=== PATIENT | female | born 1935 | race Caucasian/White ===

== ENCOUNTER 2023-01-16 12:21 | Inpatient (IN) | payer MEDICARE, MEDICAID, SELFPAY ==
[2023-01-16] VITALS (9 sets, daily range): BP systolic 91–122; BP diastolic 45–62; PULSE 70–98; RESP 12–32; TEMP 36.4–37.1; O2SAT 64–100; BMI 40.7
--- NOTE | ~2023-01-16 | XR_ITS ---
XR chest 1V portable DATE: 01/22/2023 11:21 INDICATION: Cough, shortness of breath TECHNIQUE: Portable AP chest on 01/22/2023 at 1105 hours COMPARISON: 01/19/2023 portable AP chest at 0526 hours FINDINGS: Cardiomegaly. Aortic arch and descending thoracic aortic calcification. Triple lead left-sided pacemaker device with leads overlying right atrium, right ventricle and cmclendon ry sinus. There is mild pulmonary vascular congestion and there are mild bilateral perihilar and lower lung inf iltrates and/atelectasis. The infiltrates may be due to pulmonary edema. Pneumonia or aspiration or n ot excluded. IMPRESSION: No significant change of cardiomegaly, congestive changes, bilateral central and lower miguel ng infiltrates since 01/19/2023 Reviewed, dictated and finalized at location A. IMPRESSION: No significant change of cardiomegaly, congestive changes, bilatera l central and lower lung infiltrates since 01/19/2023
--- NOTE | ~2023-01-16 | XR_ITS ---
XR chest 2V 01/16/2023 13:26 Indication: Low oxygen saturations. Procedure: AP view of the chest Comparison: Comparison to multiple prior studies sequentially, with oldest reviewed study dated 05/26. Findings: Cardiomegaly. Mild interstitial edema. Pacemaker leads are stable. No significant effusion. No pneumothorax. Impression: 1: Cardiomegaly with mild interstitial edema. Reviewed, dictated and finalized at location A. Impression: 1: Cardiomegaly with mild interstitial edema.
--- NOTE | ~2023-01-16 | US_ITS ---
Duplex Sonography of the bilateral lower extremities: Indication: Swelling Sagittal and transverse B-mode images as well as color-flow imaging were performed on the right and l eft femoral and popliteal veins. B-mode examination was done without and with compression in the tra nsverse plane. There is good visualization of the bilateral common femoral, proximal profunda femora l, superficial femoral, greater saphenous, and popliteal veins. Normal flow was seen on color-flow im aging. Normal compressibility was demonstrated. Visualized calf veins are also patent. Impression: No evidence of deep vein thrombosis involving either lower extremity. Reviewed, dictated and finalized at location M. Impression: No evidence of deep vein thrombosis involving either lower extremit y.
--- NOTE | ~2023-01-16 | XR_ITS ---
Portable chest x-ray Comparison: 01/16/2023 Clinical History: Hypoxia Findings: There is central congestive change and mild central pulmonary edema. Cardiomediastinal si lhouette is stable, with pacemaker device. Bones and soft tissues are unremarkable. Impression: Mild central pulmonary edema. Stable cardiomegaly with pacemaker device. Reviewed, dictated and finalized at location . Impression: Mild central pulmonary edema. Stable cardiomegaly with pacemaker device.
--- NOTE | 2023-01-16 12:40 | ECG_ITS ---
Measurements Intervals [place] Rate: 70 P: 240 NH: 140 QRS: 184 QRSD: 163 T: 28 QT: 499 QTc: 539 Interpretive Statements ELECTRONIC ATRIAL PACEMAKER ELECTRONIC VENTRICULAR PACEMAKER NO FURTHER INTERPRETATION IS POSSIBLE ATYPICAL ECG NO PREVIOUS ECG AVAILABLE FOR COMPARISON Electronically Signed On 01-16-2023 13:28:31 CDT by Aime Colon D.O.
[2023-01-16 12:54] LABS: Basophils Percent Auto 0.6 % (0.2-1.2); Eosinophils Absolute Auto 0.1 K/mm3 (0-0.3); Eosinophils Percent Auto 1.7 % (0-4.4); Hematocrit 32.5 % (37.0-47.0); Hemoglobin 9.7 g/dL (12.0-15.0); Immature Granulocyte Absolute 0.03 K/mm3 (0.00-0.031); Immature Granulocyte Percent A 0.5 % (0-0.5); Immature Platelet Fraction Pct 13.3 % (0.9-11.2); Lymphocytes Absolute Auto 1.31 K/mm3 (0.9-3.2); Lymphocytes Percent Auto 20.2 % (18.3-44.2); Mean Corpuscular HGB Conc 29.8 g/dl (32-36); Mean Corpuscular Hemoglobin 28.5 pg (26-34); Mean Corpuscular Volume 95.6 fl (80-100); Monocytes Absolute Auto 0.6 K/mm3 (0.1-0.6); Monocytes Percent Auto 9.2 % (2.6-8.5); Neutrophils Absolute Auto 4.4 K/mm3 (1.3-6.7); Neutrophils Percent Auto 67.8 % (45.5-73.1); Platelet Count Result 71 k/mm3 (150-375); Red Cell Distribution Width 15.5 % (11.5-14.5); White Blood Count 6.5 K/mm3 (4.5-10.0)
[2023-01-16 13:01] LABS: Alanine Aminotransferase 9 U/L (6-35); Albumin Level 3.6 g/dL (3.5-5.1); Alkaline Phosphatase 51 U/L (38-126); Anion Gap 5 mmol/L (8-16); Aspartate Amino Transferase 26 U/L (14-36); Bilirubin,Total 0.6 mg/dL (0.2-1.3); Blood Urea Nitrogen 34 mg/dL (7-17); Calcium 8.4 mg/dL (8.4-10.2); Carbon Dioxide 33 mmol/L (22-30); Chloride 102 mmol/L (98-107); Estimated Glomerular Filt Rate 35; Glucose 103 mg/dL (65-110); Lipase 19 U/L (23-300); Potassium 4.9 mmol/L (3.4-5.0); Sodium 140 mmol/L (137-145)
[2023-01-16 13:04] LABS: Platelet Estimate Decreased (Adequate)
[2023-01-16 13:05] LABS: Hypochromasia 1+ (NORMAL); Poikilocytosis 1+ (NORMAL); Schistocytes None Seen (NORMAL)
--- NOTE | 2023-01-16 13:39 | ED.NAVMDI ---
HPI - Nausea/Vomiting/Diarrhea General Chief complaint: Nausea/Vomiting/Diarrhea Stated complaint: N/V Time Seen by Provider: 01/16/23 13:30 History of Present Illness HPI Narrative: 87-year-old female presents to the emergency room today from a long-term care facility for cough, chest congestion and shortness of breath for the past 3 days. She had 1 episode of nausea and vomiting this morning after breakfast but says this is resolved at this time. She is more short of breath than normal. Her O2 sats were low when she initially arrived to our ER and she was placed on 2 L nasal cannula. At the time of my exam the patient was satting around 98 to 100% with the 2 L by nasal cannula. She has not had any fever or chills. She denies having any chest pain or palpitations. No dizziness or lightheadedness. She does have a cardiac history and has a pacemaker. Related Data Allergies Allergy/AdvReac Type Severity Reaction Status Date / Time meclizine Allergy Mild [place] Verified 05/05/17 08:23 Penicillins Allergy Mild SENT TO Verified 05/05/17 08:23 [facility] povidone-iodine Allergy Unknown SKIN Verified 05/05/17 08:23 BREAKDOWN soap Allergy Unknown SKIN Verified 05/05/17 08:23 BREAKDOWN tetanus and diphtheria Allergy Unknown Unknown Verified 01/16/23 13:53 toxoids Review of Systems Review of Systems: CONSTITUTIONAL: Denies fever, chills, or sweats. EYES: Denies visual changes, redness, or discharge. ENT: Denies rhinorrhea, congestion, sore throat, or otalgia. CARDIOVASCULAR: chronic edema to lower extremities, no worse than normal per patient RESPIRATORY: as per HPI GASTROINTESTINAL: Denies abdominal pain, nausea, vomiting, or diarrhea. GENITOURINARY: Denies dysuria or hematuria. SKIN: Denies rash or itching. MUSCULOSKELETAL: Denies back pain, joint pain, or myalgia. NEUROLOGIC: Denies headache, numbness, dizziness, or weakness. PSYCHIATRIC: Denies anxiety or depression. Exam Narrative: GENERAL: no acute distress. HEAD: Normocephalic, atraumatic. EYES: PERRL NECK: Supple. No adenopathy or masses. No carotid bruits or JVD CHEST: course crackles noted to bases bilaterally, mild increased work of breathing HEART: Regular rate and rhythm. No murmur heard. Normal peripheral pulses. ABDOMEN: Soft, nontender, nondistended, normal active bowel sounds. EXTREMITIES: 2 + edema bilateral lower extremities SKIN: Warm, dry, no rash. NEURO: No focal deficits. Alert and oriented x3. PSYCH: Normal mood and affect. Course Vital Signs Vital signs: Vital Signs Temperature 37.1 C 01/16/23 12:22 Pulse Rate 70 01/16/23 12:22 Respiratory Rate 32 H 01/16/23 12:22 Blood Pressure 91/50 L 01/16/23 12:22 Pulse Oximetry 64 L 01/16/23 12:22 Oxygen Delivery Room Air 01/16/23 12:22 Temperature 37.1 C 01/16/23 12:22 Pulse Rate 71 01/16/23 14:03 Respiratory Rate 17 01/16/23 14:03 Blood Pressure 102/45 L 01/16/23 12:56 Pulse Oximetry 97 01/16/23 13:43 Oxygen Delivery Nasal Cannula 01/16/23 13:43 Oxygen Flow Rate 2 01/16/23 13:43 MDM - Nausea/Vomiting/Diarrhea MDM Narrative Medical decision making narrative: Discussed with Shazia CHIEF PHYSICAL THERAPIST, accepting patient for admission for acute CHF exacerbation. Lab Data Attestation: I reviewed the patient's lab results. 01/16/23 12:45 01/16/23 12:45 Labs: Lab Results 01/16/23 01/16/23 01/16/23 Range/Units 12:44 12:45 13:50 WBC 6.5 (4.5-10.0) K/mm3 RBC 3.40 L (4.2-5.4) M/mm3 Hgb 9.7 L (12.0-15.0) g/dL Hct 32.5 L (37.0-47.0) % MCV 95.6 (80-100) fl MCH 28.5 (26-34) pg MCHC 29.8 L (32-36) g/dl RDW 15.5 H (11.5-14.5) % Plt Count 71 L (150-375) k/mm3 MPV 12.0 H (7.4-10.4) fl Immature Gran % (Auto) 0.5 (0-0.5) % Neut % (Auto) 67.8 (45.5-73.1) % Lymph % (Auto) 20.2 (18.3-44.2) % Clinch % (Auto) 9.2 H (2.6-8.5) % Eos % (Auto) 1.7
[2023-01-16] MEDS: ALBUTEROL SULFATE NEB 2.5 MG/3 ML INH INHALATION (13:53)
[2023-01-16] MEDS: IPRATROPIUM BR 0.02% INH SOLN 0.5 MG/2.5 ML VIAL INHALATION (13:53)
[2023-01-16 14:02] LABS: Appearance Urine Clear (Clear); Bilirubin Urine Negative (Negative); Blood Urine Negative (Negative); Color Urine Yellow (Yellow); Glucose Urine UA Negative (Negative); Ketones Urine Negative (Negative); Leukocyte Esterase Ur Negative LEU/UL (Negative); Nitrate Urine Negative (Negative); Protein Urine Negative (Negative); Specific Grav Ur 1.011 (1.001-1.035)
[2023-01-16 14:03] LABS: Add Urine Microscopic? NO
[2023-01-16 14:12] LABS: NT Pro B Type Natriuretic Pept 3890 pg/mL (19.9-100); Troponin I 0.014 ng/mL (0.000-0.034)
[2023-01-16] MEDS: FUROSEMIDE INJ 40 MG/4 ML VIAL IV PUSH (14:24)
--- NOTE | 2023-01-16 16:04 | PM.IMHP ---
H&P: HPI History of Present Illness Date/Time: 01/16/23 15:45 Chief Complaint: Cough, nausea, vomiting. Narrative: This is a pleasant 87-year-old female with history of diastolic and systolic congestive heart failure, hypertension, chronic kidney disease, anemia, Parkinson, and other comorbidities who presented to the emergency department via EMS from [facility] for evaluation of cough, nausea, and vomiting. The patient provides the following history. She developed a nagging but non-productive cough about 3 days ago and she was given some sort of medication the last couple of days which has not helped her. This morning she was feeling nauseated and she reports having 1 episode of emesis, possibly post-tussive, and she was brought in for evaluation. She denies fever, chills, sweats, headache, sinus congestion, sore throat, productive cough, chest pain, pleuritic pains, hematemesis, melena, hematochezia, and dysuria. She also denies orthopnea, paroxysmal nocturnal dyspnea, and worsening of her chronic edema. She was afebrile on arrival with stable blood pressures. Preliminary workup in the ED seems to be consistent with CHF exacerbation with mild interstitial edema noted on chest x-ray and an elevated proBNP. She received 40 mg IV furosemide and she is being admitted in this setting for further diuresis. At the time my evaluation she has no current complaints. Her nausea has resolved and she reports being hungry at this time. Review of Systems Review of Systems: Twelve systems were reviewed and are negative except for as per HPI. 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 Parkinson disease Peptic ulcer Type 2 diabetes mellitus Diet controlled. Surgical History Surgical History History of appendectomy History of benign breast biopsy History of bilateral cataract extraction History of carpal tunnel release of both wrists History of hemorrhoidectomy History of permanent cardiac pacemaker placement Family History Family History Daughter Cancer Sibling Diabetes mellitus Father Heart disease Social History Social History (Updated 01/17/23 @ 14:56 by Belen Huerta PA-C) Social History: Surrogate medical decision maker: Jori DunneJr (son). Code status: Full code. Smoking packs per day: 0.05 Smoking cigarettes per day: 1.0 Years smoked: 20 Smoking pack-years: 1.00 Smoking status: Former smoker Tobacco type: cigarettes Alcohol intake: former Drinks per week: 6 Substance use: never Lack of Transportation: No Lack of Food: Never True Current Housing: I Have Housing Concerned About Future Housing: No Difficulty Paying Gas/Electric Bills: No Difficulty Paying for Meds: No Currently Unemployed: No Education: Grade School Difficulty w/ Childcare or Family Care: No Living arrangements: shelter Additional living arrangements comments: [facility] in [place]. Spiritual care concerns: Yes Meds Home Medications and Allergies Home Medications Medication Instructions Recorded Confirmed Type albuterol sulfate 2.5 mg/3 mL 2.5 mg inhalation Q6H 01/16/23 01/16/23 History (0.083 %) solution for nebulization bisacodyl 5 mg tablet,delayed 5 mg PO DAILY 01/16/23 01/16/23 History release (Dulcolax (bisacodyl)) bupropion HCl 100 mg tablet 100 mg PO DAILY 01/16/23 01/16/23 History carbidopa 10 mg-levodopa 100 mg 1 tablet PO Q8H 01/16/23 01/16/23 History tablet carvedilol 3.125 mg tablet 3.125 mg PO Q12H 01/16/23 01/16/23 History cyanocobalamin (vit
--- NOTE | 2023-01-16 16:30 | ADMGEN ---
This patient, Julia Dunne, was admitted to [facility] S[facility] Room 331-02. Patient/family oriented to hospital policies and general routines including ID bracelet, bed and alarms, visiting hours, pain management, procedures, bathroom and other care routines, personal items, smoking policy, room service/diet, and visiting hours. Information on how to activate the Rapid Response Team has been discussed. Patient/Family are encouraged to report perceived risks to care and to ask questions if they do not understand what they are told or what they should do.
[2023-01-16] MEDS: carvediloL 3.125 MG TABLET PO (23:59)
[2023-01-16] MEDS: CARBIDOPA/LEVODOPA 10/100 MG TABLET 1 TABLET PO (23:59)
[2023-01-16] MEDS: MELATONIN 5 MG TABLET 10 MG PO (23:59)
[2023-01-16] MEDS: SIMVASTATIN 20 MG TABLET PO (23:59)
[2023-01-17] VITALS (25 sets, daily range): BP systolic 102–139; BP diastolic 50–81; PULSE 58–88; RESP 14–20; TEMP 36.1–36.6; O2SAT 80–99
--- NOTE | 2023-01-17 | ECHO_ITS ---
Patient Info Name: Julia Dunne Age: 87 years : 1935 Gender: Female Ht: 58 in Wt: 194 lbs BSA: 1.95 m2 HR: 70 bpm BP: 108 / 68 mmHg Heart Rhythm: Sinus Rhythm Technical Quality: Good Exam Date: 01/17/2023 10:33 AM Exam Location: [facility] Patient Status: Inpatient Admit Date: 01/16/2023 Staff Ordering Physician: Belen Huerta PA-C Retail Selling Specialist: Chandrika Haines RDCS Attending Provider: Elisha Davis MD Referring Physician: Bradley DAVIS; Exam Type: CA echo doppler color flow Study Info Indications - CHF Complete two-dimensional, color flow and Doppler transthoracic echocardiogram is performed. Summary 1. Complete two-dimensional, color flow and Doppler transthoracic echocardiogram is performed. 2. Left ventricular chamber dimension is normal. 3. Left ventricular systolic function is normal, estimated at 65-70%. 4. The left ventricular diastolic function is grade III diastolic dysfunction. 5. Right ventricular systolic function is normal. 6. Left atrial chamber dimension is moderately enlarged. 7. Right atrial chamber dimension is moderately enlarged. 8. There is a questionable small right atrial mass that is seen on the four chamber views. Cannot differentiate on this study between [place] valley structure vs pathological finding. Consider TOSHA or other type of cardiac imaging if clinically indicated. 9. Interatrial septum is aneurysmal. 10. There is moderate aortic valve calcification. 11. There is moderate to severe aortic valve stenosis with a peak velocity of 325 cm/s, mean gradient of 22 mmHg, and aortic valve area of 0.8 cm2. 12. There is mild mitral valve regurgitation. 13. There is mild tricuspid valve regurgitation. 14. There is small pericardial effusion. Left Ventricle Left ventricular chamber dimension is normal. Left ventricular systolic function is normal, estimated at 65-70%. There is no increased left ventricular wall thickness. The left ventricular diastolic function is grade III diastolic dysfunction. Right Ventricle Right ventricular chamber dimension is normal. Right ventricular systolic function is normal. Linear artifact in right ventricle suggestive of catheter(s), pacemaker lead(s), or ICD lead(s). Left Atria Left atrial chamber dimension is moderately enlarged. Right Atria Right atrial chamber dimension is moderately enlarged. Linear artifact in the right atrium suggestive of catheter(s), pacemaker lead(s), or ICD lead(s). There is a questionable small right atrial mass that is seen on the four chamber views. Cannot differentiate on this study between [place] structure vs pathological finding. Consider TOSHA or other type of cardiac imaging if clinically indicated. Atrial Septum Interatrial septum is aneurysmal. Aortic Valve The aortic valve is not well visualized. There is moderate to severe aortic valve stenosis with a peak velocity of 325 cm/s, mean gradient of 22 mmHg, and aortic valve area of 0.8 cm2. There is no aortic valve regurgitation. There is moderate aortic valve calcification. Pulmonic Valve The pulmonic valve is not well visualized. Mitral Valve The mitral valve has normal leaflets. There is mild mitral valve regurgitation. The mitral valve annulus is moderately calcified. Tricuspid Valve There is mild tricuspid valve regurgitation. Pericardium/Pleural There is small pericardial effusion. Inferior Vena Cava Normal inferior vena cava with >50% collapse upon inspiration consistent with normal right atrial pressure, 3 mmHg. Aorta The aortic root size at the sinus of Valsalva is nor
[2023-01-17] MEDS: ALBUTEROL SULFATE NEB 2.5 MG/3 ML INH INHALATION ×4 (01:40→19:32)
[2023-01-17 06:07] LABS: Hematocrit 30.1 % (37.0-47.0); Hemoglobin 8.8 g/dL (12.0-15.0); Immature Platelet Fraction Pct 13.1 % (0.9-11.2); Mean Corpuscular HGB Conc 29.2 g/dl (32-36); Mean Corpuscular Hemoglobin 28.2 pg (26-34); Mean Corpuscular Volume 96.5 fl (80-100); Mean Platelet Volume 12.3 fl (7.4-10.4); Platelet Count Result 70 k/mm3 (150-375); Red Blood Count 3.12 M/mm3 (4.2-5.4); White Blood Count 4.8 K/mm3 (4.5-10.0)
[2023-01-17 06:10] LABS: Anion Gap 6 mmol/L (8-16); Blood Urea Nitrogen 38 mg/dL (7-17); Calcium 8.1 mg/dL (8.4-10.2); Carbon Dioxide 32 mmol/L (22-30); Chloride 101 mmol/L (98-107); Estimated Glomerular Filt Rate 30; Glucose 79 mg/dL (65-110); Magnesium 1.9 mg/dL (1.6-2.3); Potassium 4.4 mmol/L (3.4-5.0); Sodium 139 mmol/L (137-145)
[2023-01-17 06:48] LABS: Thyroid Stimulating Hormone Reflex 0.818 uIU/mL (0.465-4.68)
[2023-01-17] MEDS: FLUTICASONE/SALMETEROL 230-21 MCG INHALER 1 PUFF 2 PUFF INHALATION ×2 (07:04→19:37)
[2023-01-17] MEDS: carvediloL 3.125 MG TABLET PO ×2 (08:29→20:50)
[2023-01-17] MEDS: BISACODYL 5 MG TABLET EC PO (08:29)
[2023-01-17] MEDS: CARBIDOPA/LEVODOPA 10/100 MG TABLET 1 TABLET PO ×3 (08:29→17:27)
[2023-01-17] MEDS: CYANOCOBALAMIN 1,000 MCG TABLET 1000 MCG PO (08:31)
[2023-01-17] MEDS: FOLIC ACID 1 MG TABLET PO (08:31)
[2023-01-17] MEDS: buPROPion HCL 100 MG TABLET PO (08:31)
[2023-01-17] MEDS: PANTOPRAZOLE 40 MG TABLET PO (08:31)
[2023-01-17] MEDS: FUROSEMIDE INJ 40 MG/4 ML VIAL 20 MG IV PUSH ×3 (08:31→17:27)
[2023-01-17] MEDS: ESCITALOPRAM OXALATE 10 MG TABLET PO (08:31)
[2023-01-17] MEDS: FERROUS SULFATE 325 MG TABLET DR BY MOUTH (08:31)
--- NOTE | 2023-01-17 14:17 | PM.IMPN ---
Progress Note: A&P Assessment and Plan (1) Acute on chronic combined systolic and diastolic congestive heart failure: Code(s): I50.43 - Acute on chronic combined systolic (congestive) and diastolic (congestive) heart failure Status: Acute Assessment and Plan: The patient presented for evaluation of n/v and cough but also shortness of breath. BNP 3890. CXR showing CMG with mild interstitial edema. Troponin negative x 1. EKG showing paced rhythm. Tele also showing paced rhythm so okay to stop tele. She appears to have CHF exacerbation. IV Lasix started. Cr up slightly today. Still requiring O2. Echo ordered and is pending. Venous Dopplers are negative for DVT. Continue IV Lasix. Wean o2 as tolerated. Follow up on Echo results. (2) Hypoxia: Code(s): R09.02 - Hypoxemia Status: Acute Assessment and Plan: CXR as mentioned above. Suspect hypoxia related to CHF exacerbation. Wean o2 as tolerated (3) Chronic kidney disease: Code(s): N18.9 - Chronic kidney disease, unspecified Status: Acute Assessment and Plan: Unclear on her baseline Cr. Cr here was 1.4 and has climbed slightly to 1.6 with IV lasix. Follow closely. (4) Chronic anemia: Code(s): D64.9 - Anemia, unspecified Status: Acute Assessment and Plan: Hgb 9.7 on admission. Patient with anemia which may be chronic. She is on chronic iron and B12 supplement which were continued. Will follow. (5) Hypertension: Code(s): I10 - Essential (primary) hypertension Status: Acute Assessment and Plan: Patient's blood pressure was reviewed on 01/17 Blood pressure remains well controlled. Will continue to monitor (6) Parkinson disease: Code(s): G20 - Parkinson's disease Status: Acute Assessment and Plan: Stable. Continue Sinemet. PT/OT. (7) Thrombocytopenia: Code(s): D69.6 - Thrombocytopenia, unspecified Status: Acute Assessment and Plan: Plt count low at 70K and unchanged on repeat. She is on B12 orally but will check level since she may not be absorbing this. Unclear if this is acute or chronic. monitor for now. Plan DVT prophylaxis - SCD Code status - full Subjective Date/time seen: 01/17/23 14:17 Interval history: 87yo female with HTN, CKD, DM, Parkinson and CHF here for cough, nausea and vomiting. She slept well. No CP. Has SOb when she coughs at times. Not on O2 at home. no hx of OLGA. Eating okay. Exam Narrative: AF 98.0 106/52 78 18 92% Gen - NARD lying semi-recumbent in bed. Chest - bibasilar inspiratory crackles with course expiratory rhonchi CV - RRR S1/S2. Tele showing paced rhythm Abd - Soft, obese, NT Ext - mild pitting pedal edema with more chronic nonpitting edema Neuro - Alert and orientedx4. Psych - Nml mood and affect Skin - Warm and dry. chronic LE venous stasis skin changes Objective Data Vital Signs Vital Signs: Vital Signs - 24 hr 01/16/23 16:41 01/16/23 16:45 01/16/23 20:00 Temperature 97.5 F L Pulse Rate 70 70 Respiratory Rate 16 16 Blood Pressure 122/62 Pulse Oximetry 100 100 100 Oxygen Delivery Nasal Cannula Nasal Cannula Oxygen Flow Rate 2 2 Fraction of Inspired Oxygen 01/16/23 20:00 01/17/23 00:00 01/17/23 01:43 Temperature 97.9 F 97.1 F L Pulse Rate 98 70 70 Respiratory Rate 12 18 18 Blood Pressure 121/54 L 127/63 Pulse Oximetry 99 99 Oxygen Delivery Oxygen Flow Rate Fraction of Inspired Oxygen 01/17/23 01:44 01/17/23 01:46 01/16/23 20:00 Temperature Pulse Rate 70 70 70 Respiratory Rate 20 18 Blood Pressure Pulse Oximetry 98 Oxygen Delivery Nasal Cannula Oxygen Flow Rate 1 Fraction of Inspired Oxygen 28 01/17/23 00:00 01/17/23 04:00 01/17/23 04:00 Temperature 96.9 F L Pulse Rate 70 70 70 Respiratory Rate 14 Blood Pressure 108/68 Pulse Oximetry 99 Oxygen Delivery Oxygen Flow Rate Fract
--- NOTE | 2023-01-17 15:18 | PCOTNOTE ---
OT evaluation orders received. Pt currently working with PT. Will continue to follow and attempt back tomorrow.
[2023-01-17] MEDS: MELATONIN 5 MG TABLET 10 MG PO (20:50)
[2023-01-17] MEDS: SIMVASTATIN 20 MG TABLET PO (20:50)
[2023-01-18] VITALS (19 sets, daily range): BP systolic 105–123; BP diastolic 50–62; PULSE 68–78; RESP 16–20; TEMP 36.1–36.5; O2SAT 76–100
[2023-01-18] MEDS: ALBUTEROL SULFATE NEB 2.5 MG/3 ML INH INHALATION ×4 (02:45→20:35)
[2023-01-18 06:10] LABS: Basophils Percent Auto 0.7 % (0.2-1.2); Eosinophils Absolute Auto 0.3 K/mm3 (0-0.3); Eosinophils Percent Auto 6.1 % (0-4.4); Hematocrit 30.5 % (37.0-47.0); Immature Granulocyte Absolute 0.01 K/mm3 (0.00-0.031); Immature Granulocyte Percent A 0.2 % (0-0.5); Immature Platelet Fraction Pct 12.9 % (0.9-11.2); Lymphocytes Absolute Auto 1.53 K/mm3 (0.9-3.2); Lymphocytes Percent Auto 34.8 % (18.3-44.2); Mean Corpuscular HGB Conc 29.5 g/dl (32-36); Mean Corpuscular Hemoglobin 28.5 pg (26-34); Mean Corpuscular Volume 96.5 fl (80-100); Mean Platelet Volume 12.1 fl (7.4-10.4); Monocytes Absolute Auto 0.4 K/mm3 (0.1-0.6); Neutrophils Absolute Auto 2.1 K/mm3 (1.3-6.7); Neutrophils Percent Auto 48.2 % (45.5-73.1); Platelet Count Result 99 k/mm3 (150-375); Red Blood Count 3.16 M/mm3 (4.2-5.4); Red Cell Distribution Width 14.7 % (11.5-14.5); White Blood Count 4.4 K/mm3 (4.5-10.0)
[2023-01-18 06:25] LABS: Anion Gap 4 mmol/L (8-16); Blood Urea Nitrogen 37 mg/dL (7-17); Calcium 7.8 mg/dL (8.4-10.2); Carbon Dioxide 37 mmol/L (22-30); Chloride 97 mmol/L (98-107); Estimated Glomerular Filt Rate 28; Glucose 83 mg/dL (65-110); Potassium 4.1 mmol/L (3.4-5.0); Sodium 138 mmol/L (137-145)
[2023-01-18 07:03] LABS: Hypochromasia 2+ (NORMAL); Poikilocytosis 1+ (NORMAL); Schistocytes None Seen (NORMAL)
[2023-01-18 07:31] LABS: Folic Acid > 20.0 ng/mL (2.76->20); Vitamin B12 > 1000.0 pg/mL (239-931)
[2023-01-18] MEDS: FLUTICASONE/SALMETEROL 230-21 MCG INHALER 1 PUFF 2 PUFF INHALATION ×2 (07:36→20:36)
[2023-01-18] MEDS: PANTOPRAZOLE 40 MG TABLET PO (08:19)
[2023-01-18] MEDS: buPROPion HCL 100 MG TABLET PO (08:19)
[2023-01-18] MEDS: CARBIDOPA/LEVODOPA 10/100 MG TABLET 1 TABLET PO ×3 (08:19→17:31)
[2023-01-18] MEDS: FERROUS SULFATE 325 MG TABLET DR BY MOUTH (08:19)
[2023-01-18] MEDS: FOLIC ACID 1 MG TABLET PO (08:19)
[2023-01-18] MEDS: carvediloL 3.125 MG TABLET PO ×2 (08:20→21:30)
[2023-01-18] MEDS: CYANOCOBALAMIN 1,000 MCG TABLET 1000 MCG PO (08:22)
[2023-01-18] MEDS: ESCITALOPRAM OXALATE 10 MG TABLET PO (08:22)
[2023-01-18] MEDS: BISACODYL 5 MG TABLET EC PO (08:22)
[2023-01-18] MEDS: FUROSEMIDE INJ 40 MG/4 ML VIAL 20 MG IV PUSH ×2 (08:28→17:31)
--- NOTE | 2023-01-18 10:09 | PM.IMPN ---
Progress Note: A&P Assessment and Plan (1) Acute on chronic combined systolic and diastolic congestive heart failure: Code(s): I50.43 - Acute on chronic combined systolic (congestive) and diastolic (congestive) heart failure Status: Acute Assessment and Plan: The patient presented for evaluation of n/v and cough but also shortness of breath. BNP 3890. CXR showing CMG with mild interstitial edema. Troponin negative x 1. EKG showing paced rhythm. Tele also showing paced rhythm so okay to stop tele. She appears to have CHF exacerbation. IV Lasix started. Cr up slightly today. Still requiring O2. Echo ordered and is pending. Venous Dopplers are negative for DVT. Continue IV Lasix. Wean o2 as tolerated. 01/18: abnormal echo noted, possible atrial mass? cardio consult pending (2) Hypoxia: Code(s): R09.02 - Hypoxemia Status: Acute Assessment and Plan: CXR as mentioned above. Suspect hypoxia related to CHF exacerbation. Wean o2 as tolerated (3) Chronic kidney disease: Code(s): N18.9 - Chronic kidney disease, unspecified Status: Acute Assessment and Plan: Unclear on her baseline Cr. Cr here was 1.4 and has climbed slightly to 1.6 with IV lasix. Follow closely. (4) Chronic anemia: Code(s): D64.9 - Anemia, unspecified Status: Acute Assessment and Plan: Hgb 9.7 on admission. Patient with anemia which may be chronic. She is on chronic iron and B12 supplement which were continued. Will follow. (5) Hypertension: Code(s): I10 - Essential (primary) hypertension Status: Acute Assessment and Plan: Patient's blood pressure was reviewed on 01/18 Blood pressure remains well controlled. Will continue to monitor (6) Parkinson disease: Code(s): G20 - Parkinson's disease Status: Acute Assessment and Plan: Stable. Continue Sinemet. PT/OT. (7) Thrombocytopenia: Code(s): D69.6 - Thrombocytopenia, unspecified Status: Acute Assessment and Plan: Plt count low at 70K and unchanged on repeat. She is on B12 orally but will check level since she may not be absorbing this. Unclear if this is acute or chronic. monitor for now. Plan DVT prophylaxis - SCD Code status - full Subjective Date/time seen: 01/18/23 10:09 Interval history: 87yo female with HTN, CKD, DM, Parkinson and CHF here for cough, nausea and vomiting. No overnight events noted. No chest pain or shortness of breath. No nausea, vomiting or diarrhea. No fevers or chills. Review of Systems Review of Systems: 12 point review of systems was assessed and was negative except as noted in the HPI Exam Narrative: General: No acute distress, alert and oriented per baseline HEENT: Atraumatic, normocephalic, mucous membranes moist CV: Regular rate and rhythm, S1, S2 Lungs: Clear to auscultation bilaterally, scattered crackles Abdomen: Soft, nontender, nondistended Extremities: Normal to inspection, trace pitting edema Skin: No rashes noted, no lesions or wounds seen Psych: Euthymic, normal affect Objective Data Vital Signs Vital Signs: Vital Signs - 24 hr 01/17/23 12:00 01/17/23 12:31 01/17/23 13:10 Temperature 98 F Pulse Rate 70 59 L 82 Respiratory Rate 20 18 Blood Pressure 106/52 L Pulse Oximetry 92 Oxygen Delivery Oxygen Flow Rate Fraction of Inspired Oxygen 01/17/23 13:20 01/17/23 13:05 01/17/23 14:55 Temperature 98 F Pulse Rate 78 60 Respiratory Rate 18 20 Blood Pressure 110/54 L Pulse Oximetry 80 L 90 Oxygen Delivery Room Air Oxygen Flow Rate Fraction of Inspired Oxygen 01/17/23 15:09 01/17/23 16:45 01/17/23 16:00 Temperature 97.9 F Pulse Rate 70 70 Respiratory Rate 18 Blood Pressure 119/60 Pulse Oximetry 98 Oxygen Delivery Nasal Cannula Oxygen Flow Rate 2 Fraction of Inspired Oxygen 01/17/23 19:32 01/17/23 19:41 01/17/23
--- NOTE | 2023-01-18 15:00 | PM.CNCAR ---
Assessment and Plan Assessment and plan (1) Acute exacerbation of CHF (congestive heart failure): Qualifiers: Heart failure type: unspecified Qualified Code(s): I50.9 - Heart failure, unspecified Code(s): I50.9 - Heart failure, unspecified Status: Acute Assessment and Plan: Continue with IV Lasix. Please monitor strict I/Os. Will obtain repeat CXR tomorrow morning. Echocardiogram personally reviewed. LVEF is preserved. Has a questionable small right atrial mass that is highly echogenic. Does not have independent motion. Given the location, could very likely be a [place] structure. Could also be fibrinous material that is attached to her pacemaker lead. I do not think it is a vegetation. No thrombus seen in the IVC extending into the right atrium, and the echogenicity does not appear to be consistent with a thrombus either. It is only appreciated in the four chamber views, not seen on the substernal views. Blood cultures obtained on 01/16 are also no growth to date. At this time, no plans for further inpatient cardiac imaging. Will plan to have patient follow up with us as an outpatient and will plan for repeat serial outpatient echocardiogram or cardiac CT. (2) Aortic stenosis: Code(s): I35.0 - Nonrheumatic aortic (valve) stenosis Status: Acute Assessment and Plan: Moderate to severe noted on echo. Will need to obtain her prior cardiology records for comparison. Outpatient follow up. (3) Acute respiratory failure with hypoxia: Code(s): J96.01 - Acute respiratory failure with hypoxia Status: Acute Assessment and Plan: Will obtain repeat CXR tomorrow morning. Wean oxygen as tolerated. (4) Chronic kidney disease: Code(s): N18.9 - Chronic kidney disease, unspecified Status: Acute Assessment and Plan: Closely monitor renal function History of Present Illness History of Present Illness Consult date/time: 01/18/23 15:00 Requesting physician: Bekah Meehan DO Consult reason: Other (Abnormal echo) Reason For Visit: CHF Exacerbation Narrative: This is an 87-year-old female with history of congestive heart failure, s/p pacemaker, hypertension, chronic kidney disease, Parkinson's who presented from her correction for cough, nausea, and vomiting. Patient is a difficult historian and cannot provide many details. She tells me that she was feeling tired and sleepy before coming in to the hospital. She told admitting Hospitalist that she was having a non-productive cough for about 3 days prior to presentation, but she cannot provide details about that to me. ER workup showed mild interstitial edema. NT pro BNP elevated. Patient currently being treated for decompensated heart failure with IV Lasix. She is reported to have chronic lower extremity edema. We do not have any prior records in our system regarding her medical issues. Echocardiogram this admission read by us shows LVEF 65-70%, grade 3 diastolic dysfunction, moderate biatrial enlargement, questionable small right atrial mass, aneurysmal interatrial septum. moderate-severe aortic valve stenosis. She is on supplemental oxygen via nasal cannula. She is not known to be on oxygen at home. Patient denies chest pain, shortness of breath. She reports feeling tired and sleepy. 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 Parkinson disease Peptic ulcer Type 2 diabetes mellitus Diet controlled. Surgical History Surgical History History of appendectomy History of be
[2023-01-18] MEDS: SIMVASTATIN 20 MG TABLET PO (21:30)
[2023-01-18] MEDS: MELATONIN 5 MG TABLET 10 MG PO (21:30)
[2023-01-19] VITALS (19 sets, daily range): BP systolic 100–127; BP diastolic 43–59; PULSE 66–78; RESP 14–24; TEMP 36.4–37.6; O2SAT 90–96
[2023-01-19] MEDS: ALBUTEROL SULFATE NEB 2.5 MG/3 ML INH INHALATION ×4 (02:21→21:11)
[2023-01-19] MEDS: FLUTICASONE/SALMETEROL 230-21 MCG INHALER 1 PUFF 2 PUFF INHALATION ×2 (08:00→21:11)
[2023-01-19] MEDS: FUROSEMIDE INJ 40 MG/4 ML VIAL 20 MG IV PUSH ×3 (09:29→16:41)
[2023-01-19] MEDS: BISACODYL 5 MG TABLET EC PO (09:30)
[2023-01-19] MEDS: FOLIC ACID 1 MG TABLET PO (09:30)
[2023-01-19] MEDS: buPROPion HCL 100 MG TABLET PO (09:30)
[2023-01-19] MEDS: CARBIDOPA/LEVODOPA 10/100 MG TABLET 1 TABLET PO ×3 (09:30→16:41)
[2023-01-19] MEDS: PANTOPRAZOLE 40 MG TABLET PO (09:30)
[2023-01-19] MEDS: FERROUS SULFATE 325 MG TABLET DR BY MOUTH (09:31)
[2023-01-19] MEDS: CYANOCOBALAMIN 1,000 MCG TABLET 1000 MCG PO (09:31)
[2023-01-19] MEDS: ESCITALOPRAM OXALATE 10 MG TABLET PO (09:31)
[2023-01-19] MEDS: carvediloL 3.125 MG TABLET PO ×2 (09:31→20:54)
--- NOTE | 2023-01-19 09:40 | PM.PNCARD ---
Progress Note: A&P Assessment and Plan (1) Acute exacerbation of CHF (congestive heart failure): Qualifiers: Heart failure type: unspecified Qualified Code(s): I50.9 - Heart failure, unspecified Code(s): I50.9 - Heart failure, unspecified Status: Acute Assessment and Plan: Acute on chronic diastolic heart failure. Improving with IV furosemide Still has pulmonary edema on CXR Continue furosemide 20mg b.i.d, but will give one extra dose today. Monitor renal function and electrolytes closely Monitor strict I&O Daily weights LONI boo Will add Entresto to her regimen. Can also consider adding spironolactone and jardiance to her regimen if her renal function remains stable with Entresto. (2) Aortic stenosis: Code(s): I35.0 - Nonrheumatic aortic (valve) stenosis Status: Acute Assessment and Plan: Moderate to severe noted on echo. Will need to obtain her prior cardiology records for comparison. Outpatient follow up. (3) Acute respiratory failure with hypoxia: Code(s): J96.01 - Acute respiratory failure with hypoxia Status: Acute Assessment and Plan: CXR continues so show pulmonary edema. Wean oxygen as tolerated. (4) Chronic kidney disease: Code(s): N18.9 - Chronic kidney disease, unspecified Status: Acute Assessment and Plan: Closely monitor renal function Subjective Date/time seen: 01/19/23 09:40 Cardiology follow up for CHF Interval history: She's feeling better today. Feels less short of breath. Worked with physical therapy this morning and didn't have any significant problems breathing with activity. Remains quite swollen. Review of Systems Review of Systems: All systems reviewed & are unremarkable except as noted in HPI and below (HPI) Exam Const: General: comfortable and no acute distress HENMT: Mouth: Yes moist mucous membranes Eyes: General: appearance normal, both eyes and all related structures Sclera: sclerae normal Neck: Neck: supple Resp: Effort & Inspection: normal respiratory effort Auscultation: rales and diminished lung sounds Other: On supplemental oxygen via nasal cannula. Cardio: Rate: regular rate Rhythm: regular rhythm Heart sounds: Murmur heart sound present systolic Skin: General skin exam: normal color Neuro: Speech: normal speech Extrem: General: edema Psych: Mental Status: mental status grossly normal Affect: normal affect Objective Data Vital Signs Vital Signs: Vital Signs - 24 hr 01/18/23 12:00 01/18/23 14:00 01/18/23 14:12 Temperature 36.2 C L Pulse Rate 71 78 71 Respiratory Rate 18 16 16 Blood Pressure 105/50 L Pulse Oximetry 98 Oxygen Delivery Oxygen Flow Rate Fraction of Inspired Oxygen 01/18/23 16:00 01/18/23 20:38 01/18/23 20:40 Temperature 36.1 C L Pulse Rate 70 70 Respiratory Rate 20 16 Blood Pressure 117/60 Pulse Oximetry 100 94 Oxygen Delivery Nasal Cannula Oxygen Flow Rate 2 Fraction of Inspired Oxygen 01/18/23 20:00 01/18/23 21:25 01/19/23 00:07 Temperature 36.5 C 36.6 C Pulse Rate 70 69 72 Respiratory Rate 16 18 18 Blood Pressure 123/56 L 126/59 L Pulse Oximetry 94 96 96 Oxygen Delivery Nasal Cannula Oxygen Flow Rate 2 Fraction of Inspired Oxygen 28 01/19/23 00:59 01/19/23 02:23 01/19/23 02:29 Temperature Pulse Rate 72 75 73 Respiratory Rate 16 16 18 Blood Pressure Pulse Oximetry Oxygen Delivery Oxygen Flow Rate Fraction of Inspired Oxygen 01/19/23 04:00 01/19/23 08:01 01/19/23 08:01 Temperature 36.4 C L Pulse Rate 78 78 Respiratory Rate 18 18 Blood Pressure 115/52 L Pulse Oximetry 95 93 Oxygen Delivery Nasal Cannula Oxygen Flow Rate 3 Fraction of Inspired Oxygen 01/19/23 08:18 01/19/23 08:00 01/19/23 09:31 Temperature 37.6 C H Pulse Rate 78 74 66 Respiratory Rate 18 24 H Blood Pressure 114/43 L Pulse Oximetry 90
--- NOTE | 2023-01-19 15:46 | PM.IMPN ---
Progress Note: A&P Assessment and Plan (1) Acute on chronic combined systolic and diastolic congestive heart failure: Code(s): I50.43 - Acute on chronic combined systolic (congestive) and diastolic (congestive) heart failure Status: Acute Assessment and Plan: The patient presented for evaluation of n/v and cough but also shortness of breath. BNP 3890. CXR showing CMG with mild interstitial edema. Troponin negative x 1. EKG showing paced rhythm. Tele also showing paced rhythm so okay to stop tele. She appears to have CHF exacerbation. IV Lasix started. Cr up slightly today. Still requiring O2. Echo ordered and is pending. Venous Dopplers are negative for DVT. Continue IV Lasix. Wean o2 as tolerated. 01/18: abnormal echo noted, possible atrial mass? cardio consult pending 01/19: entresto added, cont IV lasix per cardio recs, f/u outpatient repeat echo (2) Hypoxia: Code(s): R09.02 - Hypoxemia Status: Acute Assessment and Plan: CXR as mentioned above. Suspect hypoxia related to CHF exacerbation. Wean o2 as tolerated (3) Chronic kidney disease: Code(s): N18.9 - Chronic kidney disease, unspecified Status: Acute Assessment and Plan: Unclear on her baseline Cr. Cr here was 1.4 and has climbed slightly to 1.7 with IV lasix. Follow closely. (4) Chronic anemia: Code(s): D64.9 - Anemia, unspecified Status: Acute Assessment and Plan: Hgb 9.7 on admission. Patient with anemia which may be chronic. She is on chronic iron and B12 supplement which were continued. Will follow. (5) Hypertension: Code(s): I10 - Essential (primary) hypertension Status: Acute Assessment and Plan: Patient's blood pressure was reviewed on 01/19 Blood pressure remains well controlled. Will continue to monitor (6) Parkinson disease: Code(s): G20 - Parkinson's disease Status: Acute Assessment and Plan: Stable. Continue Sinemet. PT/OT. (7) Thrombocytopenia: Code(s): D69.6 - Thrombocytopenia, unspecified Status: Acute Assessment and Plan: Plt count low at 70K and unchanged on repeat. She is on B12 orally but will check level since she may not be absorbing this. Unclear if this is acute or chronic. monitor for now. Plan DVT prophylaxis - SCD Code status - full Subjective Date/time seen: 01/19/23 15:46 Interval history: 87yo female with HTN, CKD, DM, Parkinson and CHF here for cough, nausea and vomiting. No overnight events noted. No chest pain or shortness of breath. No nausea, vomiting or diarrhea. No fevers or chills. Review of Systems Review of Systems: 12 point review of systems was assessed and was negative except as noted in the HPI Exam Narrative: General: No acute distress, alert and oriented per baseline HEENT: Atraumatic, normocephalic, mucous membranes moist CV: Regular rate and rhythm, S1, S2 Lungs: Clear to auscultation bilaterally, scattered crackles Abdomen: Soft, nontender, nondistended Extremities: Normal to inspection, trace pitting edema Skin: No rashes noted, no lesions or wounds seen Psych: Euthymic, normal affect Objective Data Vital Signs Vital Signs: Vital Signs - 24 hr 01/18/23 16:00 01/18/23 20:38 01/18/23 20:40 Temperature 97.0 F L Pulse Rate 70 70 Respiratory Rate 20 16 Blood Pressure 117/60 Pulse Oximetry 100 94 Oxygen Delivery Nasal Cannula Oxygen Flow Rate 2 Fraction of Inspired Oxygen 01/18/23 20:00 01/18/23 21:25 01/19/23 00:07 Temperature 97.7 F 97.9 F Pulse Rate 70 69 72 Respiratory Rate 16 18 18 Blood Pressure 123/56 L 126/59 L Pulse Oximetry 94 96 96 Oxygen Delivery Nasal Cannula Oxygen Flow Rate 2 Fraction of Inspired Oxygen 28 01/19/23 00:59 01/19/23 02:23 01/19/23 02:29 Temperature Pulse Rate 72 75 73 Respiratory Rate 16 16 18 Blood Pressure Pulse Oximetry Oxygen Delivery
--- NOTE | 2023-01-19 17:52 | PC.NURSE ---
Pt is A&O4 female who has participated and contributed in plan of care. Pt denies any pain and reports swelling in her legs. Pt expresses no needs at this time. Will continue to monitor pt.
[2023-01-19] MEDS: SIMVASTATIN 20 MG TABLET PO (20:55)
[2023-01-19] MEDS: SACUBITRIL/VALSARTAN 12-13 MG TABLET 1 TAB PO (20:55)
[2023-01-19] MEDS: MELATONIN 5 MG TABLET 10 MG PO (20:55)
[2023-01-20] VITALS (17 sets, daily range): BP systolic 100–106; BP diastolic 41–54; PULSE 60–76; RESP 18–20; TEMP 36–36.6; O2SAT 95–98
[2023-01-20] MEDS: ALBUTEROL SULFATE NEB 2.5 MG/3 ML INH INHALATION ×4 (01:58→21:11)
[2023-01-20 08:02] LABS: Glucose Point of Care 79 mg/dl (65-105)
[2023-01-20] MEDS: FLUTICASONE/SALMETEROL 230-21 MCG INHALER 1 PUFF 2 PUFF INHALATION ×2 (08:21→21:12)
[2023-01-20] MEDS: ESCITALOPRAM OXALATE 10 MG TABLET PO (09:39)
[2023-01-20] MEDS: BISACODYL 5 MG TABLET EC PO (09:39)
[2023-01-20] MEDS: SACUBITRIL/VALSARTAN 12-13 MG TABLET 1 TAB PO ×2 (09:39→20:23)
[2023-01-20] MEDS: FUROSEMIDE INJ 40 MG/4 ML VIAL 20 MG IV PUSH (09:39)
[2023-01-20] MEDS: CYANOCOBALAMIN 1,000 MCG TABLET 1000 MCG PO (09:39)
[2023-01-20] MEDS: buPROPion HCL 100 MG TABLET PO (09:39)
[2023-01-20] MEDS: FOLIC ACID 1 MG TABLET PO (09:39)
[2023-01-20] MEDS: CARBIDOPA/LEVODOPA 10/100 MG TABLET 1 TABLET PO ×3 (09:39→17:27)
[2023-01-20] MEDS: FERROUS SULFATE 325 MG TABLET DR BY MOUTH (09:39)
[2023-01-20] MEDS: PANTOPRAZOLE 40 MG TABLET PO (09:39)
[2023-01-20] MEDS: carvediloL 3.125 MG TABLET PO ×2 (09:40→20:23)
--- NOTE | 2023-01-20 12:24 | PM.PNCARD ---
Progress Note: A&P Assessment and Plan (1) Acute exacerbation of CHF (congestive heart failure): Qualifiers: Heart failure type: unspecified Qualified Code(s): I50.9 - Heart failure, unspecified Code(s): I50.9 - Heart failure, unspecified Status: Acute Assessment and Plan: Acute on chronic diastolic heart failure. Improving with IV furosemide Continue furosemide 20mg b.i.d. Continue entresto 12-13mg b.i.d. Monitor renal function and electrolytes closely - Will order a BMP for today. She should have daily DMP while diuresing. Monitor strict I&O Daily weights LONI boo (2) Aortic stenosis: Code(s): I35.0 - Nonrheumatic aortic (valve) stenosis Status: Acute Assessment and Plan: Moderate to severe noted on echo. Will need to obtain her prior cardiology records for comparison. Outpatient follow up. (3) Acute respiratory failure with hypoxia: Code(s): J96.01 - Acute respiratory failure with hypoxia Status: Acute Assessment and Plan: Wean oxygen as tolerated. (4) Chronic kidney disease: Code(s): N18.9 - Chronic kidney disease, unspecified Status: Acute Assessment and Plan: Closely monitor renal function Subjective Date/time seen: 01/20/23 12:24 Interval history: 01/19/2023: She's feeling better today. Feels less short of breath. Worked with physical therapy this morning and didn't have any significant problems breathing with activity. Remains quite swollen. 01/20/2023: Still has shortness of breath but slowly improving. Has a productive cough. No chest pain or palpitations. Review of Systems Review of Systems: All systems reviewed & are unremarkable except as noted in HPI and below (HPI) Exam Const: General: comfortable and no acute distress HENMT: Mouth: Yes moist mucous membranes Eyes: General: appearance normal, both eyes and all related structures Sclera: sclerae normal Neck: Neck: supple Resp: Effort & Inspection: normal respiratory effort Auscultation: rales and diminished lung sounds Other: On supplemental oxygen via nasal cannula. Cardio: Rate: regular rate Rhythm: regular rhythm Heart sounds: Murmur heart sound present systolic Skin: General skin exam: normal color Neuro: Speech: normal speech Extrem: General: edema Psych: Mental Status: mental status grossly normal Affect: normal affect Objective Data Vital Signs Vital Signs: Vital Signs - 24 hr 01/19/23 14:05 01/19/23 14:18 01/19/23 16:00 Temperature 37.6 C Pulse Rate 70 70 73 Respiratory Rate 18 18 24 H Blood Pressure 104/45 L Pulse Oximetry 94 Oxygen Delivery Oxygen Flow Rate Fraction of Inspired Oxygen 01/19/23 20:00 01/19/23 21:13 01/19/23 21:15 Temperature Pulse Rate 75 75 Respiratory Rate 18 18 Blood Pressure Pulse Oximetry 95 95 Oxygen Delivery Nasal Cannula Nasal Cannula Oxygen Flow Rate 2 3 Fraction of Inspired Oxygen 01/19/23 20:00 01/20/23 00:00 01/20/23 02:00 Temperature 36.5 C 36.0 C L Pulse Rate 73 70 70 Respiratory Rate 14 18 18 Blood Pressure 127/55 L 105/50 L Pulse Oximetry 95 96 Oxygen Delivery Oxygen Flow Rate Fraction of Inspired Oxygen 01/19/23 21:27 01/19/23 21:45 01/20/23 02:10 Temperature Pulse Rate 76 71 Respiratory Rate 18 18 Blood Pressure Pulse Oximetry 94 Oxygen Delivery Nasal Cannula Oxygen Flow Rate 2 Fraction of Inspired Oxygen 01/20/23 04:00 01/20/23 08:22 01/20/23 08:22 Temperature 36.0 C L Pulse Rate 70 71 Respiratory Rate 18 20 Blood Pressure 100/41 L Pulse Oximetry 95 97 Oxygen Delivery Nasal Cannula Oxygen Flow Rate 2 Fraction of Inspired Oxygen 01/20/23 08:32 01/20/23 09:40 01/20/23 08:00 Temperature 36.6 C Pulse Rate 76 60 63 Respiratory Rate 20 18 Blood Pressure 106/54 L Pulse Oximetry 96 Oxygen Delivery Oxygen Flow Rate Fraction of Ins
[2023-01-20 13:14] LABS: Anion Gap 4 mmol/L (8-16); Blood Urea Nitrogen 45 mg/dL (7-17); Calcium 7.9 mg/dL (8.4-10.2); Carbon Dioxide 38 mmol/L (22-30); Chloride 94 mmol/L (98-107); Estimated Glomerular Filt Rate 25; Glucose 125 mg/dL (65-110); Potassium 3.5 mmol/L (3.4-5.0); Sodium 136 mmol/L (137-145)
--- NOTE | 2023-01-20 15:41 | PM.IMPN ---
Progress Note: A&P Assessment and Plan (1) Acute on chronic combined systolic and diastolic congestive heart failure: Code(s): I50.43 - Acute on chronic combined systolic (congestive) and diastolic (congestive) heart failure Status: Acute Assessment and Plan: The patient presented for evaluation of n/v and cough but also shortness of breath. BNP 3890. CXR showing CMG with mild interstitial edema. Troponin negative x 1. EKG showing paced rhythm. Tele also showing paced rhythm so okay to stop tele. She appears to have CHF exacerbation. IV Lasix started. Cr up slightly today. Still requiring O2. Echo ordered and is pending. Venous Dopplers are negative for DVT. Continue IV Lasix. Wean o2 as tolerated. 01/18: abnormal echo noted, possible atrial mass? cardio consult pending 01/19: entresto added, cont IV lasix per cardio recs, f/u outpatient repeat echo 01/20: cont current management, improving (2) Hypoxia: Code(s): R09.02 - Hypoxemia Status: Acute Assessment and Plan: CXR as mentioned above. Suspect hypoxia related to CHF exacerbation. Wean o2 as tolerated (3) Chronic kidney disease: Code(s): N18.9 - Chronic kidney disease, unspecified Status: Acute Assessment and Plan: Unclear on her baseline Cr. Cr here was 1.4 and has climbed slightly to 1.7 with IV lasix. Follow closely. (4) Chronic anemia: Code(s): D64.9 - Anemia, unspecified Status: Acute Assessment and Plan: Hgb 9.7 on admission. Patient with anemia which may be chronic. She is on chronic iron and B12 supplement which were continued. Will follow. (5) Hypertension: Code(s): I10 - Essential (primary) hypertension Status: Acute Assessment and Plan: Patient's blood pressure was reviewed on 01/20 Blood pressure remains well controlled. Will continue to monitor (6) Parkinson disease: Code(s): G20 - Parkinson's disease Status: Acute Assessment and Plan: Stable. Continue Sinemet. PT/OT. (7) Thrombocytopenia: Code(s): D69.6 - Thrombocytopenia, unspecified Status: Acute Assessment and Plan: Plt count low at 70K and unchanged on repeat. She is on B12 orally but will check level since she may not be absorbing this. Unclear if this is acute or chronic. monitor for now. Plan DVT prophylaxis - SCD Code status - full Subjective Date/time seen: 01/20/23 15:41 Interval history: 87yo female with HTN, CKD, DM, Parkinson and CHF here for cough, nausea and vomiting. No overnight events noted. No chest pain or shortness of breath. No nausea, vomiting or diarrhea. No fevers or chills. Still with LE edema, less than yesterday Exam Narrative: General: No acute distress, alert and oriented per baseline HEENT: Atraumatic, normocephalic, mucous membranes moist CV: Regular rate and rhythm, S1, S2 Lungs: Clear to auscultation bilaterally, scattered crackles Abdomen: Soft, nontender, nondistended Extremities: Normal to inspection, trace pitting edema, improving Skin: No rashes noted, no lesions or wounds seen Psych: Euthymic, normal affect Objective Data Vital Signs Vital Signs: Vital Signs - 24 hr 01/19/23 16:00 01/19/23 20:00 01/19/23 21:13 Temperature 99.6 F Pulse Rate 73 75 Respiratory Rate 24 H 18 Blood Pressure 104/45 L Pulse Oximetry 94 95 95 Oxygen Delivery Nasal Cannula Nasal Cannula Oxygen Flow Rate 2 3 Fraction of Inspired Oxygen 28 01/19/23 21:15 01/19/23 20:00 01/20/23 00:00 Temperature 97.7 F 96.8 F L Pulse Rate 75 73 70 Respiratory Rate 18 14 18 Blood Pressure 127/55 L 105/50 L Pulse Oximetry 95 96 Oxygen Delivery Oxygen Flow Rate Fraction of Inspired Oxygen 01/20/23 02:00 01/19/23 21:27 01/19/23 21:45 Temperature Pulse Rate 70 76 Respiratory Rate 18 18 Blood Pressure Pulse Oximetry 94 Oxygen Delivery Nasal Cannula Oxygen Flow Rate
[2023-01-20 16:28] LABS: Anion Gap 8 mmol/L (8-16); Blood Urea Nitrogen 48 mg/dL (7-17); Calcium 7.8 mg/dL (8.4-10.2); Carbon Dioxide 31 mmol/L (22-30); Chloride 95 mmol/L (98-107); Estimated Glomerular Filt Rate 28; Glucose 96 mg/dL (65-110); Potassium 4.1 mmol/L (3.4-5.0); Sodium 134 mmol/L (137-145)
[2023-01-20] MEDS: guaiFENesin 600 MG/DEXTROMETHORPHAN 30 MG SR TAB 12 HR 1 TAB PO ×2 (17:27→20:23)
[2023-01-20] MEDS: FUROSEMIDE INJ 40 MG/4 ML VIAL IV PUSH (17:27)
--- NOTE | 2023-01-20 18:53 | PC.NURSE ---
Pt has been compliant with care. Pt up in chair this evening. Pt does not express any needs at this time. Pt denies any pain. Pt uses purewick for incontinence. Will continue to monitor pt.
[2023-01-20] MEDS: SIMVASTATIN 20 MG TABLET PO (20:23)
[2023-01-20] MEDS: MELATONIN 5 MG TABLET 10 MG PO (20:23)
[2023-01-21] VITALS (16 sets, daily range): BP systolic 101–110; BP diastolic 44–56; PULSE 60–79; RESP 16–20; TEMP 36.3–36.6; O2SAT 95–99
[2023-01-21] MEDS: ALBUTEROL SULFATE NEB 2.5 MG/3 ML INH INHALATION ×4 (02:20→21:09)
[2023-01-21 06:16] LABS: Basophils Percent Auto 0.3 % (0.2-1.2); Eosinophils Absolute Auto 0.2 K/mm3 (0-0.3); Eosinophils Percent Auto 1.8 % (0-4.4); Hematocrit 27.2 % (37.0-47.0); Hemoglobin 8.1 g/dL (12.0-15.0); Immature Granulocyte Absolute 0.05 K/mm3 (0.00-0.031); Immature Granulocyte Percent A 0.5 % (0-0.5); Lymphocytes Absolute Auto 1.27 K/mm3 (0.9-3.2); Lymphocytes Percent Auto 11.6 % (18.3-44.2); Mean Corpuscular HGB Conc 29.8 g/dl (32-36); Mean Corpuscular Volume 94.1 fl (80-100); Mean Platelet Volume 12.2 fl (7.4-10.4); Monocytes Absolute Auto 0.6 K/mm3 (0.1-0.6); Neutrophils Absolute Auto 8.9 K/mm3 (1.3-6.7); Neutrophils Percent Auto 80.8 % (45.5-73.1); Platelet Count Result 152 k/mm3 (150-375); Red Blood Count 2.89 M/mm3 (4.2-5.4); Red Cell Distribution Width 14.6 % (11.5-14.5)
[2023-01-21 06:32] LABS: Alanine Aminotransferase 8 U/L (6-35); Albumin Level 3.1 g/dL (3.5-5.1); Alkaline Phosphatase 57 U/L (38-126); Anion Gap 5 mmol/L (8-16); Aspartate Amino Transferase 20 U/L (14-36); Bilirubin,Total 0.6 mg/dL (0.2-1.3); Blood Urea Nitrogen 53 mg/dL (7-17); Calcium 7.9 mg/dL (8.4-10.2); Carbon Dioxide 37 mmol/L (22-30); Chloride 93 mmol/L (98-107); Estimated Glomerular Filt Rate 25; Glucose 82 mg/dL (65-110); Potassium 3.6 mmol/L (3.4-5.0); Sodium 135 mmol/L (137-145)
[2023-01-21 07:05] LABS: Hypochromasia 1+ (NORMAL); Platelet Estimate Adequate (Adequate); Schistocytes None Seen (NORMAL)
[2023-01-21] MEDS: FLUTICASONE/SALMETEROL 230-21 MCG INHALER 1 PUFF 2 PUFF INHALATION ×2 (09:35→21:10)
[2023-01-21] MEDS: FOLIC ACID 1 MG TABLET PO (11:07)
[2023-01-21] MEDS: CYANOCOBALAMIN 1,000 MCG TABLET 1000 MCG PO (11:08)
[2023-01-21] MEDS: PANTOPRAZOLE 40 MG TABLET PO (11:08)
[2023-01-21] MEDS: ESCITALOPRAM OXALATE 10 MG TABLET PO (11:08)
[2023-01-21] MEDS: CARBIDOPA/LEVODOPA 10/100 MG TABLET 1 TABLET PO ×3 (11:08→17:57)
[2023-01-21] MEDS: buPROPion HCL 100 MG TABLET PO (11:08)
[2023-01-21] MEDS: SACUBITRIL/VALSARTAN 12-13 MG TABLET 1 TAB PO ×2 (11:09→21:40)
[2023-01-21] MEDS: FERROUS SULFATE 325 MG TABLET DR BY MOUTH (11:11)
[2023-01-21] MEDS: BISACODYL 5 MG TABLET EC PO (11:11)
[2023-01-21] MEDS: polyethylene glycoL 3350 17 GM POWD.PACK PO (11:12)
[2023-01-21] MEDS: FUROSEMIDE INJ 40 MG/4 ML VIAL IV PUSH (11:12)
[2023-01-21] MEDS: carvediloL 3.125 MG TABLET PO ×2 (11:12→21:40)
--- NOTE | 2023-01-21 11:32 | PM.IMPN ---
Progress Note: A&P Assessment and Plan (1) Acute on chronic combined systolic and diastolic congestive heart failure: Code(s): I50.43 - Acute on chronic combined systolic (congestive) and diastolic (congestive) heart failure Status: Acute Assessment and Plan: The patient presented for evaluation of n/v and cough but also shortness of breath. BNP 3890. CXR showing CMG with mild interstitial edema. Troponin negative x 1. EKG showing paced rhythm. Tele also showing paced rhythm so okay to stop tele. She appears to have CHF exacerbation. IV Lasix started. Cr up slightly today. Still requiring O2. Echo ordered and is pending. Venous Dopplers are negative for DVT. Continue IV Lasix. Wean o2 as tolerated. 01/18: abnormal echo noted, possible atrial mass? cardio consult pending 01/19: entresto added, cont IV lasix per cardio recs, f/u outpatient repeat echo 01/20: cont current management, improving 01/21: d/c IV lasix, start po tomorrow (2) Hypoxia: Code(s): R09.02 - Hypoxemia Status: Acute Assessment and Plan: CXR as mentioned above. Suspect hypoxia related to CHF exacerbation. Wean o2 as tolerated (3) Chronic kidney disease: Code(s): N18.9 - Chronic kidney disease, unspecified Status: Acute Assessment and Plan: Unclear on her baseline Cr. Cr here was 1.4 and has climbed slightly to 1.7 with IV lasix. Follow closely. (4) Chronic anemia: Code(s): D64.9 - Anemia, unspecified Status: Acute Assessment and Plan: Hgb 9.7 on admission. Patient with anemia which may be chronic. She is on chronic iron and B12 supplement which were continued. Will follow. (5) Hypertension: Code(s): I10 - Essential (primary) hypertension Status: Acute Assessment and Plan: Patient's blood pressure was reviewed on 01/20 Blood pressure remains well controlled. Will continue to monitor (6) Parkinson disease: Code(s): G20 - Parkinson's disease Status: Acute Assessment and Plan: Stable. Continue Sinemet. PT/OT. (7) Thrombocytopenia: Code(s): D69.6 - Thrombocytopenia, unspecified Status: Acute Assessment and Plan: Plt count low at 70K and unchanged on repeat. She is on B12 orally but will check level since she may not be absorbing this. Unclear if this is acute or chronic. monitor for now. Plan DVT prophylaxis - SCD Code status - full Subjective Date/time seen: 01/21/23 11:32 Interval history: 87yo female with HTN, CKD, DM, Parkinson and CHF here for cough, nausea and vomiting. No overnight events noted. No chest pain or shortness of breath. No nausea, vomiting or diarrhea. No fevers or chills. Edema continues to improve. Patient states her cough is much better today. Review of Systems Review of Systems: 12 point review of systems was assessed and was negative except as noted in the HPI Exam Narrative: General: No acute distress, alert and oriented per baseline HEENT: Atraumatic, normocephalic, mucous membranes moist CV: Regular rate and rhythm, S1, S2 Lungs: Clear to auscultation bilaterally, scattered crackles Abdomen: Soft, nontender, nondistended Extremities: Normal to inspection, trace pitting edema, improving Skin: No rashes noted, no lesions or wounds seen Psych: Euthymic, normal affect Objective Data Vital Signs Vital Signs: Vital Signs - 24 hr 01/20/23 14:30 01/20/23 14:46 01/20/23 12:00 Temperature 97.8 F Pulse Rate 72 75 63 Respiratory Rate 20 20 18 Blood Pressure 100/44 L Pulse Oximetry 97 Oxygen Delivery Oxygen Flow Rate Fraction of Inspired Oxygen 01/20/23 16:00 01/20/23 20:00 01/20/23 21:12 Temperature 97.6 F Pulse Rate 70 70 70 Respiratory Rate 18 18 20 Blood Pressure 102/53 L Pulse Oximetry 96 96 Oxygen Delivery Nasal Cannula Oxygen Flow Rate 2 Fraction of Inspired Oxygen 01/20/23 21:23 01/20/23 21
[2023-01-21] MEDS: guaiFENesin 600 MG/DEXTROMETHORPHAN 30 MG SR TAB 12 HR 1 TAB PO ×2 (13:23→21:40)
--- NOTE | 2023-01-21 13:35 | PM.PNCARD ---
Progress Note: A&P Assessment and Plan (1) Combined systolic and diastolic congestive heart failure: Code(s): I50.40 - Unspecified combined systolic (congestive) and diastolic (congestive) heart failure Status: Acute (2) Aortic stenosis: Code(s): I35.0 - Nonrheumatic aortic (valve) stenosis Status: Acute Plan 87-year-old lady with diastolic dysfunction, CHF decompensation improving with diuresis. Presumably she previously had systolic dysfunction as her medical regimen is most consistent with this as is her need for a biventricular pacemaker device. She seems to be improving wound with 3 furosemide. Agree with the plans to transition her to oral regimen starting tomorrow as she is becoming a little bit more pre renal according to her lab data. She has significant aortic valve stenosis noted by echo. She should follow up with her established manager intel at a short interval following discharge to discuss the options of treatment for this which would likely be either TAVR or nothing at all Ben Palacios MD [facility] Subjective Date/time seen: Date of service: 01/21/23 13:35 Interval history: 01/19/2023: She's feeling better today. Feels less short of breath. Worked with physical therapy this morning and didn't have any significant problems breathing with activity. Remains quite swollen. 01/20/2023: Still has shortness of breath but slowly improving. Has a productive cough. No chest pain or palpitations. 01/21/23: Says she is feeling better day by day with less shortness of breath. Reports that her established manager intel is with [facility]. Exam Const: General: comfortable and no acute distress HENMT: Mouth: Yes moist mucous membranes Eyes: General: appearance normal, both eyes and all related structures Sclera: sclerae normal Neck: Neck: supple Resp: Effort & Inspection: normal respiratory effort Auscultation: rales and diminished lung sounds Other: On supplemental oxygen via nasal cannula. Cardio: Rate: regular rate Rhythm: regular rhythm Heart sounds: Murmur heart sound present systolic Skin: General skin exam: normal color Neuro: Speech: normal speech Extrem: General: edema Psych: Mental Status: mental status grossly normal Affect: normal affect Objective Data Vital Signs Vital Signs: Vital Signs - 24 hr 01/20/23 14:30 01/20/23 14:46 01/20/23 16:00 Temperature 36.4 C Pulse Rate 72 75 70 Respiratory Rate 20 20 18 Blood Pressure 102/53 L Pulse Oximetry 96 Oxygen Delivery Oxygen Flow Rate Fraction of Inspired Oxygen 01/20/23 20:00 01/20/23 21:12 01/20/23 21:23 Temperature Pulse Rate 70 70 72 Respiratory Rate 18 20 20 Blood Pressure Pulse Oximetry 96 Oxygen Delivery Nasal Cannula Oxygen Flow Rate 2 Fraction of Inspired Oxygen 01/20/23 21:24 01/20/23 20:00 01/21/23 00:00 Temperature 36.2 C L 36.6 C Pulse Rate 70 70 69 Respiratory Rate 18 18 Blood Pressure 100/51 L 101/44 L Pulse Oximetry 98 98 95 Oxygen Delivery Nasal Cannula Oxygen Flow Rate 2 Fraction of Inspired Oxygen 01/21/23 02:20 01/21/23 02:30 01/21/23 04:00 Temperature 36.6 C Pulse Rate 69 70 69 Respiratory Rate 20 20 18 Blood Pressure 101/44 L Pulse Oximetry 95 Oxygen Delivery Oxygen Flow Rate Fraction of Inspired Oxygen 01/21/23 09:15 01/21/23 09:15 01/21/23 09:39 Temperature Pulse Rate 76 78 Respiratory Rate 20 20 Blood Pressure Pulse Oximetry 95 Oxygen Delivery Nasal Cannula Oxygen Flow Rate 2 Fraction of Inspired Oxygen 01/21/23 11:12 01/21/23 08:00 01/21/23 13:29 Temperature 36.3 C L Pulse Rate 62 60 77 Respiratory Rate 16 20 Blood Pressure 104/51 L Pulse Oximetry 96 Oxygen Delivery Oxygen Flow Rate Fraction of Inspired Oxygen Intake/Output Intake/Output: Intake & Output 01/18/23 01/19/23 01/20/23 01/21/23 23:59 23:59
[2023-01-21 13:36] LABS: Anion Gap 4 mmol/L (8-16); Blood Urea Nitrogen 48 mg/dL (7-17); Carbon Dioxide 39 mmol/L (22-30); Chloride 94 mmol/L (98-107); Estimated Glomerular Filt Rate 22; Glucose 134 mg/dL (65-110); Potassium 3.3 mmol/L (3.4-5.0); Sodium 137 mmol/L (137-145)
--- NOTE | 2023-01-21 15:38 | PCPTNOTE ---
The patient treatment was not able to be completed due to patient sleeping soundly. Will plan to continue treatment per plan of care.
--- NOTE | 2023-01-21 20:16 | PC.NURSE ---
Pt has been tired today. Pt has breakdown on bottom, that has been treated with barrier cream and a mepilex. Pt depends was removed and pt is now open to air. Pt expresses no needs and denies any pain. Purewick has been removed. Pt has been monitored for any changes in status.
[2023-01-21] MEDS: MELATONIN 5 MG TABLET 10 MG PO (21:40)
[2023-01-21] MEDS: SIMVASTATIN 20 MG TABLET PO (21:41)
[2023-01-22] VITALS (18 sets, daily range): BP systolic 90–112; BP diastolic 50–64; PULSE 64–80; RESP 16–20; TEMP 35.9–36.4; O2SAT 93–98
[2023-01-22] MEDS: ALBUTEROL SULFATE NEB 2.5 MG/3 ML INH INHALATION ×4 (02:49→20:01)
[2023-01-22 05:59] LABS: Basophils Percent Auto 0.4 % (0.2-1.2); Eosinophils Absolute Auto 0.3 K/mm3 (0-0.3); Eosinophils Percent Auto 2.6 % (0-4.4); Hematocrit 27.6 % (37.0-47.0); Hemoglobin 8.3 g/dL (12.0-15.0); Immature Granulocyte Absolute 0.07 K/mm3 (0.00-0.031); Immature Granulocyte Percent A 0.7 % (0-0.5); Lymphocytes Absolute Auto 0.83 K/mm3 (0.9-3.2); Lymphocytes Percent Auto 8.5 % (18.3-44.2); Mean Corpuscular HGB Conc 30.1 g/dl (32-36); Mean Corpuscular Hemoglobin 28.8 pg (26-34); Mean Corpuscular Volume 95.8 fl (80-100); Mean Platelet Volume 11.4 fl (7.4-10.4); Monocytes Absolute Auto 0.8 K/mm3 (0.1-0.6); Monocytes Percent Auto 7.7 % (2.6-8.5); Neutrophils Absolute Auto 7.9 K/mm3 (1.3-6.7); Neutrophils Percent Auto 80.1 % (45.5-73.1); Platelet Count Result 191 k/mm3 (150-375); Red Blood Count 2.88 M/mm3 (4.2-5.4); Red Cell Distribution Width 14.6 % (11.5-14.5); White Blood Count 9.8 K/mm3 (4.5-10.0)
[2023-01-22 06:22] LABS: Alanine Aminotransferase 8 U/L (6-35); Alkaline Phosphatase 60 U/L (38-126); Aspartate Amino Transferase 19 U/L (14-36); Bilirubin,Total 0.5 mg/dL (0.2-1.3); Blood Urea Nitrogen 49 mg/dL (7-17); Carbon Dioxide > 40 mmol/L (22-30); Chloride 95 mmol/L (98-107); Estimated Glomerular Filt Rate 24; Glucose 88 mg/dL (65-110); Potassium 3.7 mmol/L (3.4-5.0); Sodium 139 mmol/L (137-145)
[2023-01-22] MEDS: FLUTICASONE/SALMETEROL 230-21 MCG INHALER 1 PUFF 2 PUFF INHALATION ×2 (08:46→20:02)
[2023-01-22] MEDS: FOLIC ACID 1 MG TABLET PO (09:05)
[2023-01-22] MEDS: buPROPion HCL 100 MG TABLET PO (09:05)
[2023-01-22] MEDS: SACUBITRIL/VALSARTAN 12-13 MG TABLET 1 TAB PO ×2 (09:05→21:25)
[2023-01-22] MEDS: guaiFENesin 600 MG/DEXTROMETHORPHAN 30 MG SR TAB 12 HR 1 TAB PO ×2 (09:05→21:25)
[2023-01-22] MEDS: BISACODYL 5 MG TABLET EC PO (09:05)
[2023-01-22] MEDS: PANTOPRAZOLE 40 MG TABLET PO (09:06)
[2023-01-22] MEDS: FUROSEMIDE 20 MG TABLET PO (09:06)
[2023-01-22] MEDS: FERROUS SULFATE 325 MG TABLET DR BY MOUTH (09:06)
[2023-01-22] MEDS: CYANOCOBALAMIN 1,000 MCG TABLET 1000 MCG PO (09:06)
[2023-01-22] MEDS: CARBIDOPA/LEVODOPA 10/100 MG TABLET 1 TABLET PO ×3 (09:06→17:54)
[2023-01-22] MEDS: carvediloL 3.125 MG TABLET PO ×2 (09:06→21:25)
[2023-01-22] MEDS: polyethylene glycoL 3350 17 GM POWD.PACK PO (09:06)
[2023-01-22] MEDS: ESCITALOPRAM OXALATE 10 MG TABLET PO (09:06)
--- NOTE | 2023-01-22 09:33 | PM.PNCARD ---
Progress Note: A&P Assessment and Plan (1) Aortic stenosis: Code(s): I35.0 - Nonrheumatic aortic (valve) stenosis Status: Acute (2) Combined systolic and diastolic congestive heart failure: Code(s): I50.40 - Unspecified combined systolic (congestive) and diastolic (congestive) heart failure Status: Acute (3) Acute exacerbation of CHF (congestive heart failure): Qualifiers: Heart failure type: unspecified Qualified Code(s): I50.9 - Heart failure, unspecified Code(s): I50.9 - Heart failure, unspecified Status: Acute Plan Follow-up visit in this 87-year-old lady with: CHF decompensation elderly lady with at least moderate aortic valve stenosis and CHF/fluid overload. She is now on oral furosemide and seems to be nearly euvolemic at least by physical exam. I believe I would recommend trying to wean her oxygen and determine if she is at or close to appropriate for discharge. After discharge she will be following up with her established environmental compliance engineer with [facility]. Ben Palacios MD [facility] Subjective Date/time seen: Date of service: 01/22/23 09:33 Interval history: 01/19/2023: She's feeling better today. Feels less short of breath. Worked with physical therapy this morning and didn't have any significant problems breathing with activity. Remains quite swollen. 01/20/2023: Still has shortness of breath but slowly improving. Has a productive cough. No chest pain or palpitations. 01/21/23: Says she is feeling better day by day with less shortness of breath. Reports that her established environmental compliance engineer is with [facility]. 01/22/2023: Patient reports to be feeling better bit more coughing today but no shortness of breath otherwise. Lower extremity edema is improved. Exam Const: General: comfortable and no acute distress HENMT: Mouth: Yes moist mucous membranes Eyes: General: appearance normal, both eyes and all related structures Sclera: sclerae normal Neck: Neck: supple Resp: Effort & Inspection: normal respiratory effort Auscultation: diminished lung sounds Other: On supplemental oxygen via nasal cannula. Few scattered rhonchi are noted Cardio: Rate: regular rate Rhythm: regular rhythm Heart sounds: Murmur heart sound present systolic Skin: General skin exam: normal color Neuro: Speech: normal speech Extrem: General: edema Psych: Mental Status: mental status grossly normal Affect: normal affect Objective Data Vital Signs Vital Signs: Vital Signs - 24 hr 01/21/23 09:39 01/21/23 11:12 01/21/23 13:29 Temperature Pulse Rate 78 62 77 Respiratory Rate 20 20 Blood Pressure Pulse Oximetry Oxygen Delivery Oxygen Flow Rate Fraction of Inspired Oxygen 01/21/23 12:00 01/21/23 16:00 01/21/23 21:10 Temperature 36.3 C L 36.4 C Pulse Rate 64 70 79 Respiratory Rate 16 16 20 Blood Pressure 110/53 L 107/54 L Pulse Oximetry 96 99 Oxygen Delivery Oxygen Flow Rate Fraction of Inspired Oxygen 01/21/23 21:12 01/21/23 21:40 01/21/23 20:10 Temperature Pulse Rate 79 Respiratory Rate Blood Pressure Pulse Oximetry 96 96 Oxygen Delivery Nasal Cannula Nasal Cannula Oxygen Flow Rate 2 2 Fraction of Inspired Oxygen 01/21/23 20:00 01/22/23 00:00 01/22/23 00:10 Temperature 36.4 C 36.3 C L Pulse Rate 67 70 Respiratory Rate 18 18 Blood Pressure 107/56 L 90/51 L 96/50 L Pulse Oximetry 99 98 Oxygen Delivery Oxygen Flow Rate Fraction of Inspired Oxygen 01/22/23 02:51 01/22/23 02:57 01/22/23 04:00 Temperature 36.3 C L Pulse Rate 75 75 70 Respiratory Rate 20 20 18 Blood Pressure 102/51 L Pulse Oximetry 97 Oxygen Delivery Oxygen Flow Rate Fraction of Inspired Oxygen 01/22/23 08:47 01/22/23 08:47 01/22/23 09:01 Temperature Pulse Rate 72 80 Respiratory Rate 18 18 Blood Pressure Pulse Oximetry 94 O
--- NOTE | 2023-01-22 10:52 | PM.IMPN ---
Progress Note: A&P Assessment and Plan (1) Acute on chronic combined systolic and diastolic congestive heart failure: Code(s): I50.43 - Acute on chronic combined systolic (congestive) and diastolic (congestive) heart failure Status: Acute Assessment and Plan: The patient presented for evaluation of n/v and cough but also shortness of breath. BNP 3890. CXR showing CMG with mild interstitial edema. Troponin negative x 1. EKG showing paced rhythm. Tele also showing paced rhythm so okay to stop tele. She appears to have CHF exacerbation. IV Lasix started. Cr up slightly today. Still requiring O2. Echo ordered and is pending. Venous Dopplers are negative for DVT. Continue IV Lasix. Wean o2 as tolerated. 01/18: abnormal echo noted, possible atrial mass? cardio consult pending 01/19: entresto added, cont IV lasix per cardio recs, f/u outpatient repeat echo 01/20: cont current management, improving 01/21: d/c IV lasix, start po tomorrow 01/22: euvolemic on oral lasix per cardio, still on 2L O2, check CXR, PCT, attempt to wean update: CXR unchanged from 01/19, PCT 0.4, suspect she is good as it gets, anticipate d/c tomorrow on O2 (2) Hypoxia: Code(s): R09.02 - Hypoxemia Status: Acute Assessment and Plan: CXR as mentioned above. Suspect hypoxia related to CHF exacerbation. Wean o2 as tolerated (3) Chronic kidney disease: Code(s): N18.9 - Chronic kidney disease, unspecified Status: Acute Assessment and Plan: Unclear on her baseline Cr. Cr stable after d/c IV lasix, monitor (4) Chronic anemia: Code(s): D64.9 - Anemia, unspecified Status: Acute Assessment and Plan: Hgb 9.7 on admission. Patient with anemia which may be chronic. She is on chronic iron and B12 supplement which were continued. Will follow. (5) Hypertension: Code(s): I10 - Essential (primary) hypertension Status: Acute Assessment and Plan: Patient's blood pressure was reviewed on 01/22 Blood pressure remains well controlled. Will continue to monitor (6) Parkinson disease: Code(s): G20 - Parkinson's disease Status: Acute Assessment and Plan: Stable. Continue Sinemet. PT/OT. (7) Thrombocytopenia: Code(s): D69.6 - Thrombocytopenia, unspecified Status: Acute Assessment and Plan: Plt count low at 70K and unchanged on repeat. B12 wnl Plan DVT prophylaxis - SCD Code status - full Subjective Date/time seen: 01/22/23 10:52 Interval history: 87yo female with HTN, CKD, DM, Parkinson and CHF here for cough, nausea and vomiting. No overnight events noted. No chest pain or shortness of breath. No nausea, vomiting or diarrhea. No fevers or chills. Edema continues to improve. Patient states her cough is about the same today. Review of Systems Review of Systems: 12 point review of systems was assessed and was negative except as noted in the HPI Exam Narrative: General: No acute distress, alert and oriented per baseline HEENT: Atraumatic, normocephalic, mucous membranes moist CV: Regular rate and rhythm, S1, S2 Lungs: Clear to auscultation bilaterally, scattered crackles Abdomen: Soft, nontender, nondistended Extremities: Normal to inspection, trace pitting edema, improving Skin: No rashes noted, no lesions or wounds seen Psych: Euthymic, normal affect Objective Data Vital Signs Vital Signs: Vital Signs - 24 hr 01/21/23 11:12 01/21/23 13:29 01/21/23 12:00 Temperature 97.3 F L Pulse Rate 62 77 64 Respiratory Rate 20 16 Blood Pressure 110/53 L Pulse Oximetry 96 Oxygen Delivery Oxygen Flow Rate Fraction of Inspired Oxygen 01/21/23 16:00 01/21/23 21:10 01/21/23 21:12 Temperature 97.6 F Pulse Rate 70 79 Respiratory Rate 16 20 Blood Pressure 107/54 L Pulse Oximetry 99 96 Oxygen Delivery Nasal Cannula Oxygen Flow Rate 2 Fraction of Inspired Oxygen
[2023-01-22 12:24] LABS: Procalcitonin 0.4 ng/mL
--- NOTE | 2023-01-22 19:50 | PC.NURSE ---
Pt up in chair today. Pt tolerated well. Pt denies having BM. Pt given miralax and dulcolax. Pt denies any pain. Pt continues to have edema. Pt switched to PO lasix. Pt tolerating well. Pt has been monitored for any changes in status.
[2023-01-22] MEDS: SIMVASTATIN 20 MG TABLET PO (21:25)
[2023-01-22] MEDS: MELATONIN 5 MG TABLET 10 MG PO (21:25)
[2023-01-22] MEDS: BENZONATATE 100 MG CAPSULE 200 MG PO (23:35)
[2023-01-23] VITALS (12 sets, daily range): BP systolic 100–120; BP diastolic 45–50; PULSE 70–74; RESP 13–18; TEMP 35.8–36.6; O2SAT 90–97
[2023-01-23] MEDS: ALBUTEROL SULFATE NEB 2.5 MG/3 ML INH INHALATION ×3 (01:29→13:01)
[2023-01-23 07:28] LABS: Basophils Percent Auto 0.4 % (0.2-1.2); Eosinophils Absolute Auto 0.1 K/mm3 (0-0.3); Eosinophils Percent Auto 1.8 % (0-4.4); Hematocrit 26.7 % (37.0-47.0); Immature Granulocyte Absolute 0.04 K/mm3 (0.00-0.031); Immature Granulocyte Percent A 0.6 % (0-0.5); Lymphocytes Absolute Auto 1.15 K/mm3 (0.9-3.2); Lymphocytes Percent Auto 15.9 % (18.3-44.2); Mean Corpuscular Hemoglobin 28.3 pg (26-34); Mean Corpuscular Volume 94.3 fl (80-100); Mean Platelet Volume 11.6 fl (7.4-10.4); Monocytes Absolute Auto 0.8 K/mm3 (0.1-0.6); Monocytes Percent Auto 10.8 % (2.6-8.5); Neutrophils Absolute Auto 5.1 K/mm3 (1.3-6.7); Neutrophils Percent Auto 70.5 % (45.5-73.1); Platelet Count Result 213 k/mm3 (150-375); Red Blood Count 2.83 M/mm3 (4.2-5.4); Red Cell Distribution Width 14.4 % (11.5-14.5); White Blood Count 7.2 K/mm3 (4.5-10.0)
[2023-01-23] MEDS: FLUTICASONE/SALMETEROL 230-21 MCG INHALER 1 PUFF 2 PUFF INHALATION (07:38)
[2023-01-23 07:41] LABS: Alanine Aminotransferase 8 U/L (6-35); Alkaline Phosphatase 47 U/L (38-126); Anion Gap 2 mmol/L (8-16); Aspartate Amino Transferase 22 U/L (14-36); Bilirubin,Total 0.7 mg/dL (0.2-1.3); Blood Urea Nitrogen 61 mg/dL (7-17); Calcium 7.9 mg/dL (8.4-10.2); Carbon Dioxide 37 mmol/L (22-30); Chloride 95 mmol/L (98-107); Estimated Glomerular Filt Rate 25; Glucose 82 mg/dL (65-110); Potassium 4.2 mmol/L (3.4-5.0); Sodium 134 mmol/L (137-145)
[2023-01-23] MEDS: FUROSEMIDE 20 MG TABLET PO (08:56)
[2023-01-23] MEDS: CARBIDOPA/LEVODOPA 10/100 MG TABLET 1 TABLET PO ×3 (08:56→17:52)
[2023-01-23] MEDS: CYANOCOBALAMIN 1,000 MCG TABLET 1000 MCG PO (08:56)
[2023-01-23] MEDS: PANTOPRAZOLE 40 MG TABLET PO (08:56)
[2023-01-23] MEDS: SACUBITRIL/VALSARTAN 12-13 MG TABLET 1 TAB PO (08:56)
[2023-01-23] MEDS: buPROPion HCL 100 MG TABLET PO (08:56)
[2023-01-23] MEDS: guaiFENesin 600 MG/DEXTROMETHORPHAN 30 MG SR TAB 12 HR 1 TAB PO (08:56)
[2023-01-23] MEDS: FOLIC ACID 1 MG TABLET PO (08:56)
[2023-01-23] MEDS: polyethylene glycoL 3350 17 GM POWD.PACK PO (08:57)
[2023-01-23] MEDS: BISACODYL 5 MG TABLET EC PO (08:57)
[2023-01-23] MEDS: ESCITALOPRAM OXALATE 10 MG TABLET PO (08:57)
[2023-01-23] MEDS: FERROUS SULFATE 325 MG TABLET DR BY MOUTH (08:57)
[2023-01-23] MEDS: carvediloL 3.125 MG TABLET PO (08:57)
[2023-01-23] MEDS: BENZONATATE 100 MG CAPSULE 200 MG PO ×3 (08:59→17:52)
--- NOTE | 2023-01-23 09:12 | PM.PNCARD ---
Progress Note: A&P Assessment and Plan (1) Acute exacerbation of CHF (congestive heart failure): Qualifiers: Heart failure type: unspecified Qualified Code(s): I50.9 - Heart failure, unspecified Code(s): I50.9 - Heart failure, unspecified Status: Acute Assessment and Plan: Acute on chronic diastolic heart failure. Improved with IV furosemide Continue furosemide 20mg daily Continue Entresto 12-13mg b.i.d. Monitor renal function and electrolytes closely Monitor strict I&O Daily weights LONI boo No changes to her medical regimen today. If able to wean off O2, would be ok for discharge from a cardiac standpoint. Should have outpatient BMP in 1 week after DC. Should follow up with [facility] in 1-2 weeks. Cardiology will sign off. Please call with questions. (2) Aortic stenosis: Code(s): I35.0 - Nonrheumatic aortic (valve) stenosis Status: Acute Assessment and Plan: Moderate to severe noted on echo. Outpatient follow up with [facility]. (3) Acute respiratory failure with hypoxia: Code(s): J96.01 - Acute respiratory failure with hypoxia Status: Acute Assessment and Plan: Wean oxygen as tolerated. (4) Chronic kidney disease: Code(s): N18.9 - Chronic kidney disease, unspecified Status: Acute Assessment and Plan: Closely monitor renal function Subjective Date/time seen: 01/23/23 09:12 Interval history: 01/19/2023: She's feeling better today. Feels less short of breath. Worked with physical therapy this morning and didn't have any significant problems breathing with activity. Remains quite swollen. 01/20/2023: Still has shortness of breath but slowly improving. Has a productive cough. No chest pain or palpitations. 01/21/23: Says she is feeling better day by day with less shortness of breath. Reports that her established rn ambulatory is with [facility]. 01/22/2023: Patient reports to be feeling better bit more coughing today but no shortness of breath otherwise. Lower extremity edema is improved. 01/23/2023: Feeling better today but has persistent cough. No shortness of breath. Swelling continues to improve. Review of Systems Review of Systems: All systems reviewed & are unremarkable except as noted in HPI and below (HPI) Exam Const: General: comfortable and no acute distress HENMT: Mouth: Yes moist mucous membranes Eyes: General: appearance normal, both eyes and all related structures Sclera: sclerae normal Neck: Neck: supple Resp: Effort & Inspection: normal respiratory effort Auscultation: rales, rhonchi and diminished lung sounds Other: On supplemental oxygen via nasal cannula. Few scattered rhonchi are noted Cardio: Rate: regular rate Rhythm: regular rhythm Heart sounds: Murmur heart sound present systolic Skin: General skin exam: normal color Neuro: Speech: normal speech Extrem: General: edema Psych: Mental Status: mental status grossly normal Affect: normal affect Objective Data Vital Signs Vital Signs: Vital Signs - 24 hr 01/22/23 13:40 01/22/23 13:53 01/22/23 12:00 Temperature 36.4 C Pulse Rate 74 70 65 Respiratory Rate 18 20 18 Blood Pressure 100/52 L Pulse Oximetry 94 Oxygen Delivery Oxygen Flow Rate Fraction of Inspired Oxygen 01/22/23 16:00 01/22/23 20:02 01/22/23 20:21 Temperature 36.3 C L Pulse Rate 70 76 78 Respiratory Rate 18 18 18 Blood Pressure 99/54 L Pulse Oximetry 93 Oxygen Delivery Oxygen Flow Rate Fraction of Inspired Oxygen 01/22/23 20:21 01/22/23 21:25 01/22/23 20:20 Temperature Pulse Rate 78 Respiratory Rate Blood Pressure Pulse Oximetry 95 95 Oxygen Delivery Nasal Cannula Nasal Cannula Oxygen Flow Rate 2 2 Fraction of Inspired Oxygen 01/23/23 01:29 01/23/23 01:46 01/22/23 20:00 Temperature 35.9 C L Pulse Rate 71 74 70 Respiratory Rate 18 18 16
--- NOTE | 2023-01-23 09:32 | PM.IMPN ---
Progress Note: A&P Assessment and Plan (1) Acute on chronic combined systolic and diastolic congestive heart failure: Code(s): I50.43 - Acute on chronic combined systolic (congestive) and diastolic (congestive) heart failure Status: Acute Assessment and Plan: The patient presented for evaluation of n/v and cough but also shortness of breath. BNP 3890. CXR showing CMG with mild interstitial edema. Troponin negative x 1. EKG showing paced rhythm. Tele also showing paced rhythm so okay to stop tele. She appears to have CHF exacerbation. IV Lasix started. Cr up slightly today. Still requiring O2. Echo ordered and is pending. Venous Dopplers are negative for DVT. Continue IV Lasix. Wean o2 as tolerated. 01/18: abnormal echo noted, possible atrial mass? cardio consult pending 01/19: entresto added, cont IV lasix per cardio recs, f/u outpatient repeat echo 01/20: cont current management, improving 01/21: d/c IV lasix, start po tomorrow 01/22: euvolemic on oral lasix per cardio, still on 2L O2, CXR unchanged from 01/19, PCT 0.4, suspect she is good as it gets, anticipate d/c tomorrow on O2 01/23: d/c if ok with cardio on home O2 and po lasix (2) Hypoxia: Code(s): R09.02 - Hypoxemia Status: Acute Assessment and Plan: CXR as mentioned above. Suspect hypoxia related to CHF exacerbation. Wean o2 as tolerated (3) Chronic kidney disease: Code(s): N18.9 - Chronic kidney disease, unspecified Status: Acute Assessment and Plan: Unclear on her baseline Cr. Cr stable after d/c IV lasix, monitor (4) Chronic anemia: Code(s): D64.9 - Anemia, unspecified Status: Acute Assessment and Plan: Hgb 9.7 on admission. Patient with anemia which may be chronic. She is on chronic iron and B12 supplement which were continued. Will follow. (5) Hypertension: Code(s): I10 - Essential (primary) hypertension Status: Acute Assessment and Plan: Patient's blood pressure was reviewed on 01/23 Blood pressure remains well controlled. Will continue to monitor (6) Parkinson disease: Code(s): G20 - Parkinson's disease Status: Acute Assessment and Plan: Stable. Continue Sinemet. PT/OT. (7) Thrombocytopenia: Code(s): D69.6 - Thrombocytopenia, unspecified Status: Acute Assessment and Plan: Plt count low at 70K and unchanged on repeat. B12 wnl resolved Plan DVT prophylaxis - SCD Code status - full Subjective Date/time seen: 01/23/23 09:32 Interval history: 87yo female with HTN, CKD, DM, Parkinson and CHF here for cough, nausea and vomiting. No overnight events noted. No chest pain or shortness of breath. No nausea, vomiting or diarrhea. No fevers or chills. Edema continues to improve. Patient states her cough is about the same today. Review of Systems Review of Systems: 12 point review of systems was assessed and was negative except as noted in the HPI Exam Narrative: General: No acute distress, alert and oriented per baseline HEENT: Atraumatic, normocephalic, mucous membranes moist CV: Regular rate and rhythm, S1, S2 Lungs: Clear to auscultation bilaterally, scattered crackles Abdomen: Soft, nontender, nondistended Extremities: Normal to inspection, trace pitting edema, improving Skin: No rashes noted, no lesions or wounds seen Psych: Euthymic, normal affect Objective Data Vital Signs Vital Signs: Vital Signs - 24 hr 01/22/23 13:40 01/22/23 13:53 01/22/23 12:00 Temperature 97.6 F Pulse Rate 74 70 65 Respiratory Rate 18 20 18 Blood Pressure 100/52 L Pulse Oximetry 94 Oxygen Delivery Oxygen Flow Rate Fraction of Inspired Oxygen 01/22/23 16:00 01/22/23 20:02 01/22/23 20:21 Temperature 97.4 F L Pulse Rate 70 76 78 Respiratory Rate 18 18 18 Blood Pressure 99/54 L Pulse Oximetry 93 Oxygen Delivery Oxygen Flow Rate Fraction of Inspired
--- NOTE | 2023-01-23 14:13 | PM.DS ---
DS: Admitting Diagnosis Discharge Date 01/23/23 Admitting Diagnosis sob DS: Discharge Diagnosis Discharge Diagnosis (1) Acute on chronic combined systolic and diastolic congestive heart failure: Code(s): I50.43 - Acute on chronic combined systolic (congestive) and diastolic (congestive) heart failure Status: Acute Assessment and Plan: The patient presented for evaluation of n/v and cough but also shortness of breath. BNP 3890. CXR showing CMG with mild interstitial edema. Troponin negative x 1. EKG showing paced rhythm. Tele also showing paced rhythm so okay to stop tele. She appears to have CHF exacerbation. IV Lasix started. Cr up slightly today. Still requiring O2. Echo ordered and is pending. Venous Dopplers are negative for DVT. Continue IV Lasix. Wean o2 as tolerated. 01/18: abnormal echo noted, possible atrial mass? cardio consult pending 01/19: entresto added, cont IV lasix per cardio recs, f/u outpatient repeat echo 01/20: cont current management, improving 01/21: d/c IV lasix, start po tomorrow 01/22: euvolemic on oral lasix per cardio, still on 2L O2, CXR unchanged from 01/19, PCT 0.4, suspect she is good as it gets, anticipate d/c tomorrow on O2 01/23: d/c if ok with cardio on home O2 and po lasix (2) Hypoxia: Code(s): R09.02 - Hypoxemia Status: Acute Assessment and Plan: CXR as mentioned above. Suspect hypoxia related to CHF exacerbation. Wean o2 as tolerated (3) Chronic kidney disease: Code(s): N18.9 - Chronic kidney disease, unspecified Status: Acute Assessment and Plan: Unclear on her baseline Cr. Cr stable after d/c IV lasix, monitor (4) Chronic anemia: Code(s): D64.9 - Anemia, unspecified Status: Acute Assessment and Plan: Hgb 9.7 on admission. Patient with anemia which may be chronic. She is on chronic iron and B12 supplement which were continued. Will follow. (5) Hypertension: Code(s): I10 - Essential (primary) hypertension Status: Acute Assessment and Plan: Patient's blood pressure was reviewed on 01/23 Blood pressure remains well controlled. Will continue to monitor (6) Parkinson disease: Code(s): G20 - Parkinson's disease Status: Acute Assessment and Plan: Stable. Continue Sinemet. PT/OT. (7) Thrombocytopenia: Code(s): D69.6 - Thrombocytopenia, unspecified Status: Acute Assessment and Plan: Plt count low at 70K and unchanged on repeat. B12 wnl resolved Plan DVT prophylaxis - SCD Code status - full DS: Summary Hospital Course Hospital Course: 87yo female with HTN, CKD, DM, Parkinson and CHF here for cough, nausea and vomiting. No overnight events noted.? No chest pain or shortness of breath.? No nausea, vomiting or diarrhea.? No fevers or chills. Edema continues to improve. Patient states her cough is about the same today. The patient presented for evaluation of n/v and cough but also shortness of breath. BNP 3890. CXR showing CMG with mild interstitial edema. Troponin negative x 1. EKG showing paced rhythm. Tele also showing paced rhythm so okay to stop tele.? She appears to have CHF exacerbation. IV Lasix started. Cr up slightly today. Still requiring O2. Echo ordered and is pending. Venous Dopplers are negative for DVT. Continue IV Lasix. Wean o2 as tolerated. 01/18: abnormal echo noted, possible atrial mass? cardio consult pending 01/19: entresto added, cont IV lasix per cardio recs, f/u outpatient repeat echo 01/20: cont current management, improving 01/21: d/c IV lasix, start po tomorrow 01/22: euvolemic on oral lasix per cardio, still on 2L O2, CXR unchanged from 01/19, PCT 0.4, suspect she is good as it gets, anticipate d/c tomorrow on O2 01/23: d/c if ok with cardio on home O2 and po lasix Please see above and med rec for details. Time Spent with Patient Time attestation: Total time spent providing and/or coordinating discharge services:
--- NOTE | 2023-01-23 15:09 | PCRCNOTE ---
RN STATES THAT PATIENT IS GOING TO A SENIOR LIVING. HOME O2 EVAL NOT NEEDED AT THIS TIME.
--- NOTE | 2023-01-23 18:33 | PC.NURSE ---
Pt did not get out of bed today. Pt continues to be on 2L O2. Pt denies any pain. Pt discharged back to [facility]. Pt compliant with care. Pt IV removed tip intact. Pt tolerated well. Report called to Jessica. Pt was monitored for any changes in status while here. Pt was transported back by [facility]. Pt tolerated transfer well.
== END 2023-01-23 18:10 | DRG 291 ==
LOC: ANHED 16:00 → ANH3MEDSUR 16:12
PROVIDERS: Emergency Medicine; Internal Medicine; Nurse Practitioner; Physician Assistant; Admitting Provider Family Medicine; Emergency Provider Nurse Practitioner Family; PCP Internal Medicine; Visit Provider Student in an Organized Health Care Education/Training Program
DX: I13.0 Hypertensive heart and chronic kidney disease with heart failure and stage 1 through stage 4 chronic kidney disease, or unspecified chronic kidney disease (principal); I50.43 Acute on chronic combined systolic (congestive) and diastolic (congestive) heart failure; Z68.41 Body mass index [BMI] 40.0-44.9, adult; R09.02 Hypoxemia; N18.9 Chronic kidney disease, unspecified; D64.9 Anemia, unspecified; G20 Parkinson's disease; D69.6 Thrombocytopenia, unspecified; E11.22 Type 2 diabetes mellitus with diabetic chronic kidney disease; I35.0 Nonrheumatic aortic (valve) stenosis; E78.5 Hyperlipidemia, unspecified; Z95.0 Presence of cardiac pacemaker; E66.9 Obesity, unspecified; Z86.718 Personal history of other venous thrombosis and embolism; Z87.11 Personal history of peptic ulcer disease; Z98.42 Cataract extraction status, left eye; Z98.41 Cataract extraction status, right eye; Z90.49 Acquired absence of other specified parts of digestive tract; Z87.891 Personal history of nicotine dependence
CPT/HCPCS: 36415; 71045; 71046; 80048; 80053; 81003; 82607; 82746; 82948; 83690; 83735; 83880; 84145; 84443; 84484; 85025; 85027; 85055; 87040; 93005; 93306; 93970; 94640; 96374; 96376; 97110; 97161; 97165; 97530; 97535; 99285; A9270; G0378; J1940

== ENCOUNTER 2023-01-26 13:49 | Emergency (ER) | payer MEDICARE, MEDICAID, SELFPAY ==
[2023-01-26] VITALS (9 sets, daily range): BP systolic 103–137; BP diastolic 45–72; PULSE 69–73; RESP 15–20; TEMP 36.1–36.6; O2SAT 71–100
--- NOTE | ~2023-01-26 | XR_ITS ---
EXAMINATION: XR chest 1V portable DATE: 01/26/2023 16:27 INDICATION: Dyspnea. TECHNIQUE: A single frontal view of the chest was obtained. COMPARISON: Chest single view 01/22/2023, chest CT 06/06/2015 FINDINGS: Lung volumes are small. There is a diffuse interstitial pattern in the lungs. No pleural ef fusion or pneumothorax. Cardiomegaly is noted. There is a left chest pacer leads in right atrium, rig ht ventricle, and coronary sinus. There is an old healed right rib fracture. IMPRESSION: 1. Stable interstitial pattern in the lungs, consistent with mild pulmonary edema and/or chronic inte rstitial lung disease. 2. Cardiomegaly. Reviewed, dictated and finalized at location L. IMPRESSION: 1. Stable interstitial pattern in the lungs, consistent with mild pulmonary annabel ma and/or chronic interstitial lung disease. 2. Cardiomegaly.
--- NOTE | 2023-01-26 16:08 | ECG_ITS ---
Measurements Intervals [place] Rate: 70 P: 263 [place]: 136 QRS: 191 QRSD: 174 T: 16 QT: 493 QTc: 532 Interpretive Statements ELECTRONIC ATRIAL PACEMAKER ELECTRONIC VENTRICULAR PACEMAKER ABNORMAL RHYTHM ECG COMPARED TO ECG 01/16/2023 13:02:25 NO SIGNIFICANT CHANGES Electronically Signed On 01-27-2023 12:52:30 CDT by Ben Palacios M.D.
--- NOTE | 2023-01-26 16:29 | ED.RECABL ---
HPI - Recheck/Abnormal Lab/Rx General Chief Complaint: Recheck/Abnormal Lab/Rx Stated Complaint: from [facility] for low BP - per EMS VSS Time Seen by Provider: 01/26/23 16:15 History of Present Illness HPI narrative: Patient is a 87-year-old female with history of CHF, diabetes, hypertension here with shortness of breath and low blood pressure from her facility. Patient notes that earlier today she began feeling more tired than usual. She notes she still had some associated shortness of breath which feels similar to her most recent admission. She does endorse a cough which is productive in nature. She denies any leg swelling, chest pain, fever, chills. She does not believe she is currently on any oxygen at home. She denies any urinary symptoms. No diarrhea, vomiting. Related Data Home Medications Medication Instructions Recorded Confirmed albuterol sulfate 2.5 mg/3 mL 2.5 mg inhalation Q6H 01/16/23 01/16/23 (0.083 %) solution for nebulization bisacodyl 5 mg tablet,delayed 5 mg PO DAILY 01/16/23 01/16/23 release (Dulcolax (bisacodyl)) bupropion HCl 100 mg tablet 100 mg PO DAILY 01/16/23 01/16/23 carbidopa 10 mg-levodopa 100 mg 1 tablet PO Q8H 01/16/23 01/16/23 tablet carvedilol 3.125 mg tablet 3.125 mg PO Q12H 01/16/23 01/16/23 cyanocobalamin (vitamin B-12) 1,000 mcg PO DAILY 01/16/23 01/16/23 1,000 mcg tablet escitalopram oxalate 10 mg tablet 10 mg PO DAILY 01/16/23 01/16/23 ferrous sulfate 325 mg (65 mg 325 mg PO DAILY 01/16/23 01/16/23 iron) tablet fluticasone furoate 200 1 inh inhalation DAILY 01/16/23 01/16/23 mcg-vilanterol 25 mcg/dose inhalation powder folic acid 1 mg tablet 1 mg PO DAILY 01/16/23 01/16/23 furosemide 20 mg tablet 20 mg PO DAILY 01/16/23 01/16/23 melatonin 10 mg tablet 10 mg PO HS 01/16/23 01/16/23 pantoprazole 40 mg tablet,delayed 40 mg PO DAILY 01/16/23 01/16/23 release simvastatin 20 mg tablet 20 mg PO HS 01/16/23 01/16/23 Allergies Allergy/AdvReac Type Severity Reaction Status Date / Time meclizine Allergy Mild [place] Verified 01/16/23 17:16 Penicillins Allergy Mild SENT TO Verified 01/16/23 17:16 [facility] levofloxacin [From Levaquin] Allergy Unknown Unknown Verified 01/16/23 17:16 povidone-iodine Allergy Unknown SKIN Verified 01/16/23 17:16 BREAKDOWN soap Allergy Unknown SKIN Verified 01/16/23 17:16 BREAKDOWN tetanus and diphtheria Allergy Unknown Unknown Verified 01/16/23 17:16 toxoids red dye AdvReac Unknown Unknown Verified 01/16/23 17:16 immune globulin Allergy Unknown Unknown Uncoded 01/16/23 17:16 tape AdvReac Unknown Unknown Uncoded 01/16/23 17:16 Review of Systems Review of Systems: CONSTITUTIONAL: Denies fever, chills, or sweats. Has had increased fatigue EYES: Denies visual changes, redness, or discharge. ENT: Denies rhinorrhea, congestion, sore throat, or otalgia. CARDIOVASCULAR: Denies chest pain, palpitations, or edema. RESPIRATORY: Endorses cough, shortness of breath. GASTROINTESTINAL: Denies abdominal pain, nausea, vomiting, or diarrhea. GENITOURINARY: Denies dysuria or hematuria. SKIN: Denies rash or itching. MUSCULOSKELETAL: Denies back pain, joint pain, or myalgia. NEUROLOGIC: Denies headache, numbness, or weakness. PSYCHIATRIC: Denies anxiety or depression. 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 Parkinson disease Peptic ulcer Type 2 diabetes mellitus Diet controlled. Surgical History Surgical History History of appendectomy History of benign breast biopsy History of bilateral cataract extraction History of carpal tunnel release of both wrists History of hemorrhoidectomy His
[2023-01-26 17:34] LABS: Basophils Absolute Auto 0.1 K/mm3 (0.0-0.1); Basophils Percent Auto 0.6 % (0.2-1.2); Eosinophils Absolute Auto 0.2 K/mm3 (0-0.3); Eosinophils Percent Auto 2.2 % (0-4.4); Hematocrit 32.8 % (37.0-47.0); Hemoglobin 9.7 g/dL (12.0-15.0); Immature Granulocyte Absolute 0.06 K/mm3 (0.00-0.031); Immature Granulocyte Percent A 0.7 % (0-0.5); Lymphocytes Percent Auto 16.9 % (18.3-44.2); Mean Corpuscular HGB Conc 29.6 g/dl (32-36); Mean Corpuscular Volume 94.8 fl (80-100); Mean Platelet Volume 10.9 fl (7.4-10.4); Monocytes Absolute Auto 0.8 K/mm3 (0.1-0.6); Monocytes Percent Auto 9.3 % (2.6-8.5); Neutrophils Absolute Auto 6.3 K/mm3 (1.3-6.7); Neutrophils Percent Auto 70.3 % (45.5-73.1); Platelet Count Result 304 k/mm3 (150-375); Red Blood Count 3.46 M/mm3 (4.2-5.4); Red Cell Distribution Width 14.6 % (11.5-14.5); White Blood Count 8.9 K/mm3 (4.5-10.0)
[2023-01-26 17:38] LABS: Alanine Aminotransferase 13 U/L (6-35); Albumin Level 3.5 g/dL (3.5-5.1); Alkaline Phosphatase 61 U/L (38-126); Anion Gap 5 mmol/L (8-16); Aspartate Amino Transferase 28 U/L (14-36); Bilirubin,Total 0.5 mg/dL (0.2-1.3); Blood Urea Nitrogen 51 mg/dL (7-17); Calcium 8.7 mg/dL (8.4-10.2); Carbon Dioxide 32 mmol/L (22-30); Chloride 98 mmol/L (98-107); Estimated Glomerular Filt Rate 33; Glucose 107 mg/dL (65-110); Magnesium 2.4 mg/dL (1.6-2.3); Potassium 4.5 mmol/L (3.4-5.0); Sodium 135 mmol/L (137-145)
[2023-01-26 17:46] LABS: Hypochromasia 1+ (NORMAL); Ovalocytes 1+ (NORMAL); Platelet Estimate Adequate (Adequate); Schistocytes None Seen (NORMAL)
[2023-01-26 17:49] LABS: NT Pro B Type Natriuretic Pept 998 pg/mL (19.9-100); Troponin I < 0.012 ng/mL (0.000-0.034)
[2023-01-26 18:01] LABS: Partial Thromboplastin Time 31.7 SECONDS (22.3-36.8)
[2023-01-26 18:03] LABS: Glucose Point of Care 95 mg/dl (65-105)
[2023-01-26 18:16] LABS: INR 1.1; Prothrombin Time 14.6 Seconds (11.1-14.7)
[2023-01-26 18:22] LABS: Appearance Urine Clear (Clear); Bacteria Urine None Seen /hpf; Bilirubin Urine Negative (Negative); Blood Urine Negative (Negative); Color Urine Yellow (Yellow); Glucose Urine UA Negative (Negative); Ketones Urine Negative (Negative); Leukocyte Esterase Ur Trace LEU/UL (Negative); Need Manual Microscopic Reviewed; Nitrate Urine Negative (Negative); Protein Urine Negative (Negative); RBC Urine 0-2 /hpf (0-2); Specific Grav Ur 1.016 (1.001-1.035); Squamous Epithelial Cell Urine None seen /hpf (Few); WBC Urine 0-5 /hpf; pH Urine 5.5 (5.0-9.0)
[2023-01-26 18:29] LABS: Add Urine Microscopic? YES
== END 2023-01-26 21:05 ==
PROVIDERS: Emergency Provider Student in an Organized Health Care Education/Training Program; PCP Internal Medicine
DX: R09.02 Hypoxemia (principal); I95.9 Hypotension, unspecified; E11.22 Type 2 diabetes mellitus with diabetic chronic kidney disease; I13.0 Hypertensive heart and chronic kidney disease with heart failure and stage 1 through stage 4 chronic kidney disease, or unspecified chronic kidney disease; N18.9 Chronic kidney disease, unspecified; I50.40 Unspecified combined systolic (congestive) and diastolic (congestive) heart failure; G20 Parkinson's disease; D64.9 Anemia, unspecified; E78.5 Hyperlipidemia, unspecified; Z98.42 Cataract extraction status, left eye; Z98.41 Cataract extraction status, right eye; Z95.0 Presence of cardiac pacemaker; Z87.891 Personal history of nicotine dependence; Z87.11 Personal history of peptic ulcer disease; Z86.718 Personal history of other venous thrombosis and embolism; I51.7 Cardiomegaly; R91.8 Other nonspecific abnormal finding of lung field
CPT/HCPCS: 36415; 71045; 80053; 81001; 82948; 83735; 83880; 84484; 85025; 85610; 85730; 93005; 99284

== ENCOUNTER 2023-02-24 08:31 | Emergency (ER) | payer MEDICARE, MEDICAID, SELFPAY ==
[2023-02-24] VITALS (48 sets, daily range): BP systolic 87–133; BP diastolic 45–74; PULSE 70–95; RESP 12–19; TEMP 36.4; O2SAT 100
--- NOTE | ~2023-02-24 | XR_ITS ---
Portable chest x-ray Comparison: 01/26/2023 Clinical History: Hypoxia Findings: Possible mild central congestive change. Cardiomediastinal silhouette is stable, with pac emaker device. Bones and soft tissues are unremarkable. Impression: Possible mild central congestive change. Stable cardiomegaly with pacemaker device. Reviewed, dictated and finalized at location . Impression: Possible mild central congestive change. Stable cardiomegaly with pacemaker device.
--- NOTE | ~2023-02-24 | US_ITS ---
EXAMINATION: US venous doppler [facility] DATE: 02/24/2023 10:56 INDICATION: Bilateral lower limb pain and swelling TECHNIQUE: Grayscale ultrasound images without and with compression and Doppler ultrasound images of the bilateral lower extremity veins were obtained. COMPARISON: None. FINDINGS: The visualized portions of right common femoral vein, profunda (deep) femoral vein, femoral vein, pop liteal vein, gastrocnemius vein and greater saphenous vein outflow are patent. The right posterior ti bial and peroneal veins were unable to be visualized. The visualized portions of left common femoral vein, profunda femoral vein, femoral vein, popliteal v ein, posterior tibial veins, gastrocnemius vein and greater saphenous vein outflow are patent. The le ft peroneal veins were unable to be visualized. IMPRESSION: 1. No deep venous thrombosis identified in either lower limb. The right posterior tibial and bilater al peroneal veins at the calf were unable to be visualized. Reviewed, dictated and finalized at location A. IMPRESSION: 1. No deep venous thrombosis identified in either lower limb. The right baker bench ior tibial and bilateral peroneal veins at the calf were unable to be visualize d.
--- NOTE | 2023-02-24 08:44 | ECG_ITS ---
Measurements Intervals [place] Rate: 70 P: 251 PA: 146 QRS: 35 QRSD: 160 T: 24 QT: 463 QTc: 500 Interpretive Statements ELECTRONIC ATRIAL PACEMAKER ELECTRONIC VENTRICULAR PACEMAKER NO FURTHER INTERPRETATION IS POSSIBLE ATYPICAL ECG COMPARED TO ECG 01/26/2023 17:49:03 NO SIGNIFICANT CHANGES Electronically Signed On 02-24-2023 8:46:10 CDT by Aime Colon D.O.
--- NOTE | 2023-02-24 09:12 | ED.SOB ---
HPI - SOB/Dyspnea General Chief Complaint: Extremity Problem,Nontraumatic Stated Complaint: leg pain, hypoxic, low BP Time Seen by Provider: 02/24/23 09:09 Source: patient, EMS and other (SNF ) Mode of arrival: EMS Limitations: physical limitation and clinical condition History of Present Illness HPI Narrative: Patient is a pleasant 87-year-old female with a past medical history of chronic anemia, chronic kidney disease, combined systolic and diastolic congestive heart failure, DVT, hyperlipidemia, hypertension, hypothyroidism, Parkinson's disease, type 2 diabetes, peptic ulcer, obesity who presents emergency department today via EMS from [facility] for evaluation of worsening lower leg pain over the last 3-4 days. Patient states that the right leg is more swollen than the left leg and more painful. She states that she has cellulitis but when asked if she is on antibiotic she said no. She states that they have been wrapping her legs. She states that the swelling actually is a little bit better than it was however it is pretty significant. She denies any fever, chills, chest pain, shortness a breath, dizziness, nausea, vomiting, abdominal pain, urinary symptoms, diarrhea, cough, or any other symptoms. Per EMS they were called out for hypoxia from the [facility] staff and the [facility] staff had her on 10 L of O2 however when EMS got there and moved the SpO2 of that the patient had apparent pause on she was in the high 90s on 3 L. Patient typically wears 3 L at all times. Related Data Home Medications Medication Instructions Recorded Confirmed albuterol sulfate 2.5 mg/3 mL 2.5 mg inhalation Q6H 01/16/23 01/16/23 (0.083 %) solution for nebulization bisacodyl 5 mg tablet,delayed 5 mg PO DAILY 01/16/23 01/16/23 release (Dulcolax (bisacodyl)) bupropion HCl 100 mg tablet 100 mg PO DAILY 01/16/23 01/16/23 carbidopa 10 mg-levodopa 100 mg 1 tablet PO Q8H 01/16/23 01/16/23 tablet carvedilol 3.125 mg tablet 3.125 mg PO Q12H 01/16/23 01/16/23 cyanocobalamin (vitamin B-12) 1,000 mcg PO DAILY 01/16/23 01/16/23 1,000 mcg tablet escitalopram oxalate 10 mg tablet 10 mg PO DAILY 01/16/23 01/16/23 ferrous sulfate 325 mg (65 mg 325 mg PO DAILY 01/16/23 01/16/23 iron) tablet fluticasone furoate 200 1 inh inhalation DAILY 01/16/23 01/16/23 mcg-vilanterol 25 mcg/dose inhalation powder folic acid 1 mg tablet 1 mg PO DAILY 01/16/23 01/16/23 furosemide 20 mg tablet 20 mg PO DAILY 01/16/23 01/16/23 melatonin 10 mg tablet 10 mg PO HS 01/16/23 01/16/23 pantoprazole 40 mg tablet,delayed 40 mg PO DAILY 01/16/23 01/16/23 release simvastatin 20 mg tablet 20 mg PO HS 01/16/23 01/16/23 Allergies Allergy/AdvReac Type Severity Reaction Status Date / Time meclizine Allergy Mild [place] Verified 01/16/23 17:16 Penicillins Allergy Mild SENT TO Verified 01/16/23 17:16 [facility] levofloxacin [From Levaquin] Allergy Unknown Unknown Verified 01/16/23 17:16 povidone-iodine Allergy Unknown SKIN Verified 01/16/23 17:16 BREAKDOWN soap Allergy Unknown SKIN Verified 01/16/23 17:16 BREAKDOWN tetanus and diphtheria Allergy Unknown Unknown Verified 01/16/23 17:16 toxoids red dye AdvReac Unknown Unknown Verified 01/16/23 17:16 immune globulin Allergy Unknown Unknown Uncoded 01/16/23 17:16 tape AdvReac Unknown Unknown Uncoded 01/16/23 17:16 Review of Systems Review of Systems: CONSTITUTIONAL: Denies fever, chills, or sweats. EYES: Denies visual changes, redness, or discharge. ENT: Denies rhinorrhea, congestion, sore throat, or otalgia. CARDIOVASCULAR: Denies chest pain, palpitations, or edema. RESPIRATORY: Denies cough or dyspnea. GASTROINTESTINAL: Denies abdominal pain, nausea, vomiting, or diarrhea. GENITOURINARY: Denies dysuria or hematuria. SKIN: redness to the lower legs bilaterally. Denies rash or itching. MUSCULOSKELETAL: BLE pain greater right than left and swelling. Denies back pain, myalgia. NEUROLOG
[2023-02-24 12:54] LABS: Basophils Absolute Auto 0.1 K/mm3 (0.0-0.1); Basophils Percent Auto 1.4 % (0.2-1.2); Eosinophils Absolute Auto 0.3 K/mm3 (0-0.3); Eosinophils Percent Auto 6.5 % (0-4.4); Hematocrit 27.3 % (37.0-47.0); Hemoglobin 7.9 g/dL (12.0-15.0); Immature Granulocyte Absolute 0.01 K/mm3 (0.00-0.031); Immature Granulocyte Percent A 0.2 % (0-0.5); Immature Platelet Fraction Pct 9.3 % (0.9-11.2); Lymphocytes Absolute Auto 1.45 K/mm3 (0.9-3.2); Mean Corpuscular HGB Conc 28.9 g/dl (32-36); Mean Corpuscular Hemoglobin 28.6 pg (26-34); Mean Corpuscular Volume 98.9 fl (80-100); Mean Platelet Volume 11.8 fl (7.4-10.4); Monocytes Absolute Auto 0.3 K/mm3 (0.1-0.6); Neutrophils Percent Auto 48.9 % (45.5-73.1); Platelet Count Result 92 k/mm3 (150-375); Red Blood Count 2.76 M/mm3 (4.2-5.4); Red Cell Distribution Width 15.5 % (11.5-14.5); White Blood Count 4.1 K/mm3 (4.5-10.0)
[2023-02-24 12:59] LABS: Alanine Aminotransferase 6 U/L (6-35); Alkaline Phosphatase 48 U/L (38-126); Anion Gap 2 mmol/L (8-16); Aspartate Amino Transferase 24 U/L (14-36); Bilirubin,Total 0.3 mg/dL (0.2-1.3); Blood Urea Nitrogen 50 mg/dL (7-17); Calcium 8.1 mg/dL (8.4-10.2); Carbon Dioxide 32 mmol/L (22-30); Chloride 105 mmol/L (98-107); Estimated Glomerular Filt Rate 35; Glucose 77 mg/dL (65-110); Magnesium 2.4 mg/dL (1.6-2.3); Potassium 6.3 mmol/L (3.4-5.0); Sodium 139 mmol/L (137-145)
[2023-02-24 13:08] LABS: NT Pro B Type Natriuretic Pept 628 pg/mL (19.9-100); Troponin I < 0.012 ng/mL (0.000-0.034)
[2023-02-24 13:32] LABS: Lactic Acid Reflex < 0.5 mmol/L (0.7-2.0)
[2023-02-24 15:44] LABS: Anion Gap 3 mmol/L (8-16); Blood Urea Nitrogen 48 mg/dL (7-17); Carbon Dioxide 33 mmol/L (22-30); Chloride 102 mmol/L (98-107); Estimated Glomerular Filt Rate 33; Glucose 79 mg/dL (65-110); Potassium 5.8 mmol/L (3.4-5.0); Sodium 138 mmol/L (137-145)
[2023-02-24] MEDS: FUROSEMIDE INJ 40 MG/4 ML VIAL IV PUSH (16:48)
--- NOTE | 2023-02-24 17:20 | PC.NURSE ---
RN calls and speaks to longterm staff. senior care staff states that pt has been ordered Bactrim for her cellulitis but had not started them yet. senior care staff states pt will start the antibiotics. RN also informs [facility] staff that pt will need a repeat potassium level checked. NH staff verbalized understanding and had no issues. RN informs longterm staff that RN will call when pt is leaving the ED.
[2023-02-24] MEDS: SODIUM ZIRCONIUM CYCLOSILICATE 10 GM POWD.PACK 5 GM PO (17:50)
== END 2023-02-24 19:45 ==
PROVIDERS: Emergency Provider Nurse Practitioner; PCP Internal Medicine
DX: L03.116 Cellulitis of left lower limb (principal); L03.115 Cellulitis of right lower limb; E11.22 Type 2 diabetes mellitus with diabetic chronic kidney disease; I13.0 Hypertensive heart and chronic kidney disease with heart failure and stage 1 through stage 4 chronic kidney disease, or unspecified chronic kidney disease; N18.9 Chronic kidney disease, unspecified; I50.43 Acute on chronic combined systolic (congestive) and diastolic (congestive) heart failure; D64.9 Anemia, unspecified; E87.6 Hypokalemia; E78.5 Hyperlipidemia, unspecified; G20 Parkinson's disease; Z98.42 Cataract extraction status, left eye; Z98.41 Cataract extraction status, right eye; Z95.0 Presence of cardiac pacemaker; Z86.718 Personal history of other venous thrombosis and embolism; Z87.11 Personal history of peptic ulcer disease; Z87.891 Personal history of nicotine dependence; E66.9 Obesity, unspecified; Z68.41 Body mass index [BMI] 40.0-44.9, adult
CPT/HCPCS: 36415; 71045; 80048; 80053; 83605; 83735; 83880; 84484; 85025; 85055; 87040; 93005; 93970; 96374; 99284; A9270; J1940